=== PATIENT | female | born 1960 | race Caucasian/White ===

== ENCOUNTER 2016-08-17 11:58 | Observation (INO) | payer OTHER ==
[2016-08-17] VITALS (7 sets, daily range): BP systolic 116–133; BP diastolic 60–71; PULSE 68–78; RESP 20–22; TEMP 97.6–98.4; O2SAT 92–98
[~2016-08-17] VITALS: Ht 162.6 cm; Wt 92.0 kg
[~2016-08-17 11:58] MED LIST: ZITH250T PO
[2016-08-17] MEDS ORDERED: SODIUM CHLORIDE 0.9% FLUSH 5 ML FLUSH IVF PRN ×2 (12:15→15:45)
--- NOTE | 2016-08-17 12:32 | RADRPT ---
EXAM DATE/TIME: 08/17/2016 12:08 [facility] COMPARISON: No previous studies available for comparison. INDICATIONS : Midsternal chest pains with radiating into right side and into back. MEDICAL HISTORY : None. SURGICAL HISTORY : None. ENCOUNTER: Initial ACUITY: 1 day PAIN SCORE: 9/10 LOCATION: Right chest FINDINGS: A single view of the chest demonstrates the lungs to be symmetrically aerated without evidence of mas s, infiltrate or effusion. The cardiomediastinal contours are unremarkable. Osseous structures are intact. CONCLUSION: No acute disease. Familia Rhodes MD on August 17, 2016 at 12:30 Board Certified Radiologist. This report was verified electronically.
[2016-08-17 12:35] LABS: AUTOMATED NEUTROPHIL # 3.6 TH/MM3 (1.8-7.7); BASOPHIL % 0.4 % (0.0-2.0); EOSINOPHIL # 0.1 TH/MM3 (0-0.4); EOSINOPHIL % 1.5 % (0.0-4.0); HEMATOCRIT 40.3 % (35.0-46.0); HEMO FLAGS DIFF FINAL; LYMPH % 40.2 % (9.0-44.0); LYMPHOCYTE # 2.9 TH/MM3 (1.0-4.8); MEAN CELL VOLUME 85.9 FL (80.0-100.0); MEAN CORPUSCULAR HEMOGLOBIN 28.7 PG (27.0-34.0); MEAN CORPUSCULAR HGB CONC 33.4 % (32.0-36.0); MONO % 8.6 % (0.0-8.0); NEUT % 49.3 % (16.0-70.0); PLATELET COUNT 250 TH/MM3 (150-450); RED BLOOD COUNT 4.69 MIL/MM3 (4.00-5.30); RED CELL DISTRIBUTION WIDTH 13.4 % (11.6-17.2); WHITE BLOOD COUNT 7.2 TH/MM3 (4.0-11.0)
[2016-08-17 12:46] LABS: INTERNATIONAL NORMALIZED RATIO 1.1 RATIO; PROTHROMBIN TIME - PATIENT 11.7 SEC (9.8-11.6)
--- NOTE | 2016-08-17 13:08 | PD ---
HPI Chief Complaint: Chest Pain Time Seen by Provider: 13:04 Travel History International Travel<30 days: No Contact w/Intl Traveler<30days: No Traveled to known affect area: No History of Present Illness HPI 55-year-old female that presents to the ED for evaluation of chest pain. Patient came here by him was for evaluation of this. He denies any history of heart disease in herself but the stomach she has a family history of heart disease some people older than her. She is an avid smoker. Per patient the pain has been ongoing for the past 3 days. Per patient starts in the chest and radiates to the back as well as to the left shoulder. Per patient she gets dizzy and lightheaded and feel short of breath. Per patient for the past 3 days has been ongoing but today got worse. She denies any recent travel. Denies taking any medications of any kind. She was given nitroglycerin in ambulance with some relief. She denies any abdominal pain. Nausea or vomiting. No leg pain or arm pain at this time. She states that she feels like the room spinning when asked what she means by dizzy. She has no allergies to medication. No back pain. No fevers chills or sweats. No cough or runny nose. Per patient the pain gets to be 7 out of 10. She was given aspirin in route. [facility] Past Medical History Respiratory: Yes (HX PNEUMONIA ) Tetanus Vaccination: > 5 Years Influenza Vaccination: Yes ?: Not Past Surgical History Section: Yes Cholecystectomy: Yes Hysterectomy: Yes Other Surgery: Yes (HERNIA REPAIR) Social History Alcohol Use: Yes (OCCASIONALLY ) Tobacco Use: Yes (1 PPD) Substance Use: No Allergies-Medications (Allergen,Severity, Reaction): Coded Allergies: No Known Allergies (Verified , 08/17/13) Reported Meds & Prescriptions Reported Meds & Active Scripts Active Zithromax Z-Morris (Azithromycin) 250 Mg Tab 250 Mg PO DIRECTED 5 Days 500 MG (2 TABLETS) PO ON DAY 1, THEN 250 MG (1 TABLET) PO ON DAYS 2 TO 5. Review of Systems Except as stated in HPI: all other systems reviewed are Neg Physical Exam Narrative GENERAL: SKIN: Warm and dry. HEAD: Atraumatic. Normocephalic. EYES: Pupils equal and round. No scleral icterus. No injection or drainage. ENT: No nasal bleeding or discharge. Mucous membranes pink and moist. Tongue is midline. No uvula deviation. NECK: Trachea midline. No JVD. CARDIOVASCULAR: Regular rate and rhythm. No murmurs, S3, S4. Chest pain is not reproducible with touch. RESPIRATORY: No accessory muscle use. Clear to auscultation. Breath sounds equal bilaterally. GASTROINTESTINAL: Abdomen soft, non-tender, nondistended. Hepatic and splenic margins not palpable. MUSCULOSKELETAL: Extremities without clubbing, cyanosis, or edema. No obvious deformities. Full range of motion of the upper and lower extremities bilaterally. 2+ pulses bilaterally. NEUROLOGICAL: Awake and alert. No obvious cranial nerve deficits. Motor grossly within normal limits. Five out of 5 muscle strength in the arms and legs. Normal speech. PSYCHIATRIC: Appropriate mood and affect; insight and judgment normal. Data Data Last Documented VS Vital Signs Date Time Temp Pulse Resp B/P Pulse Ox O2 Delivery O2 Flow Rate FiO2 08/17/16 13:37 18 08/17/16 13:17 70 125/69 95 Room Air 08/17/16 12:11 2 08/17/16 12:06 92 08/17/16 12:06 98.4 Orders Electrocardiogram (08/17/16 12:05) Basic Metabolic Panel (Bmp) (08/17/16 12:05) Ckmb (Isoenzyme) Profile (08/17/16 12:05) Complete Blood Count With Diff (08/17/16 12:05) Magnesium (Mg) (08/17/16 12:05) Prothrombin Time / Inr (Pt) (08/17/16 12:05) Act Partial Throm Time (Ptt) (08/17/16 12:05) Troponin I (08/17/16 12:05) Chest, Single Ap (08/17/16 12:05) Ecg Monitoring (08/17/16 12:05) Bilateral Bp Monitoring (08/17/16 12:05) Iv Access Insert/Monitor (08/17/16 12:05) Oximetry (08/17/16 12:05) Oxygen Administration (08/17/16 12:05) Sodium Chloride 0.9% Flush (Ns Flush) (08/17/16 12:15) Morphine Inj (Morphine Inj) (08/17/16 13:15) Ondansetron Inj (Zofran Inj) (08/17/16 13:15) CKMB (08/17/16 12:10) CKMB% (08/17/16 12:10) Admit Order (Ed Use Only) (08/17/16 13:49) Labs Laboratory Tests Test 08/17/16 12:10 White Blood Count 7.2 TH/MM3 Red Blood Count 4.69 MIL/MM3 Hemoglobin 13.5 GM/DL Hematocrit 40.3 % Mean Corpuscular Volume 85.9 FL Mean Corpuscular Hemoglobin 28.7 PG Mean Corpuscular Hemoglobin 33.4 % Concent Red Cell Distribution Width 13.4 % Platelet Count 250 TH/MM3 Mean Platelet Volume 9.2 FL Neutrophils (%) (Auto) 49.3 % Lymphocytes (%) (Auto) 40.2 % Monocytes (%) (Auto) 8.6 % Eosinophils (%) (Auto) 1.5 % Basophils (%) (Auto) 0.4 % Neutrophils # (Auto) 3.6 TH/MM3 Lymphocytes # (Auto) 2.9 TH/MM3 Monocytes # (Auto) 0.6 TH/MM3 Eosinophils # (Auto) 0.1 TH/MM3 Basophils # (Auto) 0.0 TH/MM3 CBC Comment DIFF FINAL Differential Comment Prothrombin Time 11.7 SEC Prothromb Time International 1.1 RATIO Ratio Activated Partial 28.0 SEC Thromboplast Time Sodium Level 137 MEQ/L Potassium Level 5.1 MEQ/L Chloride Level 107 MEQ/L Carbon Dioxide Level 25.4 MEQ/L Anion Gap 5 MEQ/L Blood Urea Nitrogen 9 MG/DL Creatinine 0.64 MG/DL Estimat Glomerular Filtration 96 ML/MIN Rate Random Glucose 82 MG/DL Calcium Level 8.2 MG/DL Magnesium Level 2.3 MG/DL Total Creatine Kinase 175 U/L Creatine Kinase MB LESS THAN 0.5 NG/ML Troponin I LESS THAN 0.02 NG/ML MDM Medical Decision Making Medical Screen Exam Complete: Yes Emergency Medical Condition: Yes Medical Record Reviewed: Yes Interpretation(s) CBC & BMP Diagram 08/17/16 12:10 EKG shows sinus rhythm with no sign of acute ischemia or arrhythmia read by me and attending. Last Impressions Chest X-Ray 08/17/16 1205 Signed Impressions: Service Date/Time: Wednesday, August 17, 2016 12:08 - CONCLUSION: No acute disease. Familia Rhodes MD BMP and troponin negative CKMB negative Differential Diagnosis Chest pain versus a typical chest pain versus ACS versus NSTEMI Narrative Course 55-year-old female that presents to the ED for evaluation of chest pain. Patient was properly examined and was found to have signs and symptoms consistent with chest pain. Possible cardiac. Recommendation is times for labs and imaging. Patient is agreeable with plan. Labs and imaging showed no sign of acute disease. Initial EKG showed no ST elevation and initial troponin was negative. Because of patient's symptoms and do recommend admission for chest pain center for cardiac rule out. Patient is agreeable with this plan. Patient was admitted to the chest pain center. Procedures EKG Prior to Arrival: Yes Diagnosis Primary Impression: Chest pain in adult Admitting Information Admitting Physician Requests: Observation Cody Ellis Aug 17, 2016 13:07
[2016-08-17 13:12] LABS: ANION GAP 5 MEQ/L (5-15); BICARBONATE 25.4 MEQ/L (21.0-32.0); BLOOD UREA NITROGEN 9 MG/DL (7-18); CHLORIDE 107 MEQ/L (98-107); GLOMERULAR FILTRATION RATE 96 ML/MIN (>89); MAGNESIUM 2.3 MG/DL (1.5-2.5); SODIUM (NA) 137 MEQ/L (136-145)
[2016-08-17 13:13] LABS: CREATINE KINASE 175 U/L (26-192); POTASSIUM 5.1 MEQ/L (3.5-5.1)
[2016-08-17] MEDS ORDERED: MORPHINE SULFATE 4 MG/ML INJ IV PUSH ONE (13:15)
[2016-08-17] MEDS ORDERED: ONDANSETRON HCL 4 MG/2 ML VIAL IV PUSH ONE (13:15)
[2016-08-17 13:25] LABS: CKMB LESS THAN 0.5 NG/ML (0.5-3.6)
--- NOTE | 2016-08-17 14:16 | PD ---
Physical Exam Date Seen by Provider: Aug 17, 2016 Time Seen by Provider: 12:15 Narrative I, Dr. Jacobson, have reviewed the advance practice practitioner's documentation and am in agreement, met with the patient face to face, made the diagnosis, and the medical decision making was done by me. *My assessment and Findings: Patient seen and evaluated with PA, please see PA note for further details. GENERAL: Well-nourished, well-developed middle age female patient in no acute distress. SKIN: Warm and dry. HEAD: Normocephalic. EYES: No scleral icterus. No injection or drainage. NECK: Supple, trachea midline. CARDIOVASCULAR: Regular rate and rhythm without murmurs, gallops, or rubs. RESPIRATORY: Breath sounds equal bilaterally. No accessory muscle use. GASTROINTESTINAL: Abdomen soft, non-tender, nondistended. MUSCULOSKELETAL: No cyanosis, or edema. BACK: Nontender without obvious deformity. No CVA tenderness. EKG shows NSR, no ST elevation or depression, and no arrhythmias. No significant T-wave inversions. Laboratory Tests Test 08/17/16 12:10 Monocytes (%) (Auto) 8.6 % (0.0-8.0) Prothrombin Time 11.7 SEC (9.8-11.6) Calcium Level 8.2 MG/DL (8.5-10.1) Creatine Kinase MB LESS THAN 0.5 NG/ML (0.5-3.6) Troponin I LESS THAN 0.02 NG/ML (0.02-0.05) Last 24 hours Impressions Chest X-Ray 08/17/16 1205 Signed Impressions: Service Date/Time: Wednesday, August 17, 2016 12:08 - CONCLUSION: No acute disease. Familia Rhodes MD Chest x-ray, EKG, and cardiac enzymes negative. At this point, my plan would be to admit the patient for further evaluation and chest pain center. Data Data Last Documented VS Vital Signs Date Time Temp Pulse Resp B/P Pulse Ox O2 Delivery O2 Flow Rate FiO2 08/17/16 13:37 18 08/17/16 13:17 70 125/69 95 Room Air 08/17/16 12:11 2 08/17/16 12:06 92 08/17/16 12:06 98.4 Orders Electrocardiogram (08/17/16 12:05) Basic Metabolic Panel (Bmp) (1/27/17 12:05) Ckmb (Isoenzyme) Profile (08/17/16 12:05) Complete Blood Count With Diff (08/17/16 12:05) Magnesium (Mg) (08/17/16 12:05) Prothrombin Time / Inr (Pt) (08/17/16 12:05) Act Partial Throm Time (Ptt) (08/17/16 12:05) Troponin I (08/17/16 12:05) Chest, Single Ap (08/17/16 12:05) Ecg Monitoring (08/17/16 12:05) Bilateral Bp Monitoring (08/17/16 12:05) Iv Access Insert/Monitor (08/17/16 12:05) Oximetry (08/17/16 12:05) Oxygen Administration (08/17/16 12:05) Sodium Chloride 0.9% Flush (Ns Flush) (08/17/16 12:15) Morphine Inj (Morphine Inj) (08/17/16 13:15) Ondansetron Inj (Zofran Inj) (08/17/16 13:15) CKMB (08/17/16 12:10) CKMB% (08/17/16 12:10) Admit Order (Ed Use Only) (08/17/16 13:49) Labs Laboratory Tests Test 08/17/16 12:10 White Blood Count 7.2 TH/MM3 Red Blood Count 4.69 MIL/MM3 Hemoglobin 13.5 GM/DL Hematocrit 40.3 % Mean Corpuscular Volume 85.9 FL Mean Corpuscular Hemoglobin 28.7 PG Mean Corpuscular Hemoglobin 33.4 % Concent Red Cell Distribution Width 13.4 % Platelet Count 250 TH/MM3 Mean Platelet Volume 9.2 FL Neutrophils (%) (Auto) 49.3 % Lymphocytes (%) (Auto) 40.2 % Monocytes (%) (Auto) 8.6 % Eosinophils (%) (Auto) 1.5 % Basophils (%) (Auto) 0.4 % Neutrophils # (Auto) 3.6 TH/MM3 Lymphocytes # (Auto) 2.9 TH/MM3 Monocytes # (Auto) 0.6 TH/MM3 Eosinophils # (Auto) 0.1 TH/MM3 Basophils # (Auto) 0.0 TH/MM3 CBC Comment DIFF FINAL Differential Comment Prothrombin Time 11.7 SEC Prothromb Time International 1.1 RATIO Ratio Activated Partial 28.0 SEC Thromboplast Time Sodium Level 137 MEQ/L Potassium Level 5.1 MEQ/L Chloride Level 107 MEQ/L Carbon Dioxide Level 25.4 MEQ/L Anion Gap 5 MEQ/L Blood Urea Nitrogen 9 MG/DL Creatinine 0.64 MG/DL Estimat Glomerular Filtration 96 ML/MIN Rate Random Glucose 82 MG/DL Calcium Level 8.2 MG/DL Magnesium Level 2.3 MG/DL Total Creatine Kinase 175 U/L Creatine Kinase MB LESS THAN 0.5 NG/ML Troponin I LESS THAN 0.02 NG/ML [facility] Medical Record Reviewed: Yes Supervised Visit with CHETNA: Yes Diagnosis Primary Impression: Chest pain in adult Admitting Information Admitting Physician Requests: it Dylan Jacobson MD Aug 17, 2016 14:15
[2016-08-17] MEDS ORDERED: ONDANSETRON HCL 4 MG/2 ML VIAL IV PRN (16:00)
[2016-08-17] MEDS ORDERED: RESP: ALBUTEROL 2.5 MG/IPRATROPIUM 0.5 MG NEB (PRN) INH (16:00)
[2016-08-17] MEDS ORDERED: KETOROLAC TROMETHAMINE 30 MG/ML (IVP) VIAL IVP ONE (16:00)
[2016-08-17] MEDS ORDERED: ALPRAZolam 0.25 MG TAB PO PRN (16:00)
[2016-08-17] MEDS ORDERED: ACETAMINOPHEN/HYDROcodone 325 MG/7.5 MG TAB PO PRN (16:00)
[2016-08-17] MEDS ORDERED: NITROGLYCERIN 2% OINT 1 GM PACKET TOPICAL ONE (16:00)
[2016-08-17 20:34] LABS: CREATINE KINASE 54 U/L (26-192)
[2016-08-17] MEDS: ACETAMINOPHEN 500 MG CPLT PO PRN (21:22)
[2016-08-17] MEDS: SODIUM CHLORIDE 0.9% FLUSH 5 ML FLUSH IVF SCH (21:22)
[2016-08-18] VITALS (8 sets, daily range): BP systolic 100–120; BP diastolic 55–75; PULSE 55–72; RESP 18–20; TEMP 97.1–98.6; O2SAT 93–98
[2016-08-18] MEDS: SODIUM CHLORIDE 0.9% FLUSH 5 ML FLUSH IVF SCH (08:03)
[2016-08-18] MEDS ORDERED: ASPIRIN 325 MG TAB PO SCH (09:00)
[2016-08-18] MEDS ORDERED: PANTOPRAZOLE SOD 40 MG DELAYED RELEASE TAB PO SCH (09:00)
[2016-08-18] MEDS ORDERED: REGADENOSON INJ 0.4 MG/5 ML SYR ONE (09:17)
--- NOTE | 2016-08-18 12:19 | EKG ---
Date Performed: 08/17/2016 Time Performed: 12:05:32 PTAGE: 55 years EKG: Sinus rhythm NONSPECIFIC T-WAVE ABNORMALITY BORDERLINE ECG INTERPRETATION BASED ON A DEFAULT AGE OF 40 YEARS PREVIOUS TRACING : 05/23/1998 00.56 DOCTOR: Jared Garibay Interpretating Date/Time 08/18/2016 12:17:10
[2016-08-18] MEDS: ACETAMINOPHEN 500 MG CPLT PO PRN (12:29)
--- NOTE | 2016-08-18 12:32 | EKG ---
Date Performed: 08/17/2016 Time Performed: 17:35:45 PTAGE: 55 years EKG: Sinus rhythm LOW QRS VOLTAGE IN PRECORDIAL LEADS NONSPECIFIC T-WAVE ABNORMALITY BORDERLINE ECG PREVIOUS TRACING : 08/17/2016 12.05 DOCTOR: Jared Garibay Interpretating Date/Time 08/18/2016 12:30:19
--- NOTE | 2016-08-18 12:36 | EKG ---
Date Performed: 08/17/2016 Time Performed: 19:33:36 PTAGE: 55 years EKG: Sinus rhythm LOW QRS VOLTAGE IN PRECORDIAL LEADS NONSPECIFIC T-WAVE ABNORMALITY BORDERLINE ECG PREVIOUS TRACING : 08/17/2016 17.35 DOCTOR: Jared Garibay Interpretating Date/Time 08/18/2016 12:34:48
--- NOTE | 2016-08-18 12:37 | RADRPT ---
EXAM DATE/TIME: 08/18/2016 08:49 [facility] COMPARISON: No previous studies available for comparison. INDICATIONS : Chest pain radiating to back and left shoulder presents with dizziness, lightheadedness and shortness of breath. Angina. DOSE: 27.3 mCi Tc99m Myoview at stress. 8.6 mCi Tc99m Myoview at rest. 0.4 mg Lexiscan STRESS SYMPTOMS: Dizzy, shortness of breath and headache. EJECTION FRACTION: > 70% MEDICAL HISTORY : None SURGICAL HISTORY : Cholecystectomy. section. Hysterectomy. Hernia repair. ENCOUNTER: Initial ACUITY: 3 days PAIN SCALE: 7/10 LOCATION: chest TECHNIQUE: The patient underwent pharmacologic stress with infusion of prescribed dose. Continuous ECG tracing was monitored during stress. Gated SPECT imaging was performed after stress and conventional SPECT i maging was performed at rest. The examination was performed on a SPECT/CT scanner, both attenuation and non-corrected datasets were reviewed. FINDINGS: DISTRIBUTION: The maximum perfused segment at stress is in the lateral wall. PERFUSION STUDY: The pattern of perfusion at stress is within normal limits. GATED STUDY: There is intact wall motion and thickening without hypokinetic or dyskinetic segments. CONCLUSION: Unremarkable myocardial perfusion study. RISK CATEGORY: Low Jamir Gil MD on August 18, 2016 at 12:35 Board Certified Radiologist. This report was verified electronically.
--- NOTE | 2016-08-18 12:54 | TR ---
Date Performed: 08/18/2016 Time Performed: 09:26:15 DOCTOR: Jared Garibay DRUG LIST: CLINICAL HISTORY: CHEST PAIN REASON FOR TEST: CHEST PAIN REASON FOR ENDING: OBSERVATION: CONCLUSION: Lexiscan stress test was performed under standard four minute protocol. Radionuclide was injected one minute prior to ending the test. Developed dizziness and shortness of breath, becam e mildly hypotensive. No electrocardiographic abnormalities were present to suggest ischemia. Recover y was quick and uneventful with resolution of symptoms, blood pressure returned to normal. Nuclear im aging and interpretation are pending. COMMENTS:
--- NOTE | 2016-08-18 13:14 | HHI.DCPOC ---
Discharge Care Plan Diagnosis: (1) Atypical chest pain (2) Musculoskeletal chest pain (3) Tobacco abuse Goals to Promote Your Health * To prevent worsening of your condition and complications * To maintain your health at the optimal level Directions to Meet Your Goals Take your medications as prescribed Follow your dietary instruction Follow activity as directed Keep your appointments as scheduled Take your immunizations and boosters as scheduled If your symptoms worsen call your PCP, if no PCP go to Urgent Care Center or Emergency Room Smoking is Dangerous to Your Health. Avoid second hand smoke Call the 24-hour hour crisis hotline for domestic abuse at [facility] Aug 18, 2016 13:13
--- NOTE | 2016-08-19 12:44 | MH ---
cc: MODESTA DIAS MD DATE OF ADMISSION: 08/17/2016 DATE OF 56 CHIEF COMPLAINT Chest pain. HISTORY OF PRESENT ILLNESS A 55 year old female who presents to the ED via [facility] with a complaint of chest discomfort. She states she was at work earlier this morning when she had a sudden onset if discomfort in her back. It was an intense discomfort. Later it radiated anteriorly in her chest. She describes it as a heaviness. It is still there. She was a little short of breath. She felt a little dizzy. There was no diaphoresis, was feeling a little nauseous. She works with [employer] and had told somebody about her discomfort and they gave her some nitroglycerin and aspirin which did not help her symptoms. She states she was given some IV pain medicine in the ER which helped a little bit but the discomfort is still there. The discomfort is currently about a 5/10. She denies history of heart disease. She states she has never had any cardiac evaluation. Her primary care physician is Dr. Kacie Williamson. She also has had a cough, had been nonproductive, for the past week. No fevers or chills. No recent travel. PAST MEDICAL HISTORY Tobacco abuse. Denies hypertension, hyperlipidemia, diabetes and CAD. FAMILY HISTORY She denies family history of CAD. SOCIAL HISTORY The patient smokes one-pack of cigarettes daily for 30 years. She has occasional alcohol. Denies illicit drugs. PAST SURGICAL HISTORY 1. , 2. Cholecystectomy ALLERGIES No known drug allergies. MEDICATIONS Denies. REVIEW OF SYSTEMS GENERAL: Denies fevers or chills. Denies recent illnesses. HEENT: Denies headache, earache, sore throat, difficulty swallowing. CARDIOVASCULAR: Describes the discomfort as mentioned above. Denies diaphoresis. Denies sensation of heart beating rapidly or irregularly. Denies syncope. RESPIRATORY: She was a little short of breath. She has had a dry cough. Denies inspirational chest discomfort. Denies wheezing or hemoptysis. GI: She was a little nauseous. Denies emesis. Denies abdominal pain. Denies diarrhea, constipation or blood in stool. MUSCULOSKELETAL: Denies joint pain or edema. She does complain of an upper back discomfort and it is still there. It is worse when she does any movements. Denies calf pain or swelling. NEUROVASCULAR: Denies headache. She was having a little dizziness earlier. That has resolved. Denies numbness, tingling or weakness in extremities. ENDOCRINE: Denies polyuria or polydipsia. HEMATOLOGIC: Denies bruising. SKIN: Denies rash or itching. PHYSICAL EXAMINATION VITAL SIGNS: In the emergency department initially included a blood pressure 133/69, heart rate was 78, respirations 22, pulse oximetry 96% on room air and she was afebrile. Most recent vital signs include blood pressure 126/71, heart rate was 73, respirations 20, pulse oximetry 98 in room air. GENERAL: The patient seen in the examination room in no apparent stress. She is very pleasant. She speaks in clear and complete sentences. HEENT: Head is atraumatic, normocephalic. NECK: Neck is supple without lymphadenopathy and trachea is midline. No JVD or carotid bruits. CARDIOVASCULAR: Regular rate and rhythm without murmur, gallop or rub. RESPIRATORY: Clear to auscultation bilaterally. No wheezing, rales or rhonchi. There is a rather easily reproducible discomfort across her anterior chest wall. It is also worse with twisting of the torso and sitting upright. This is worse than the discomfort she has been having. GI: Abdomen is nontender, nondistended. Bowel sounds are normal. No guarding or rebound. No obvious pulsatile mass or bruit. No CVA tenderness. Strong femoral pulses bilaterally. MUSCULOSKELETAL: Patient moving upper and lower extremities freely. No joint tenderness or edema. No calf tenderness or edema, no Homans' sign. Strong pulses in upper and lower extremities. NEUROVASCULAR: The patient is alert and oriented. Cranial II-XII are grossly intact. No focal deficits and speech is clear. SKIN: No rashes. Turgor is normal. LABORATORY DATA CBC is unremarkable. Coagulation studies unremarkable. A basic metabolic panel is unremarkable. First set of cardiac enzymes is normal. IMAGING STUDIES Single view chest x-ray read by radiology as no acute disease. CARDIOLOGY STUDIES EKGs - initial EKG sinus rhythm with nonspecific T-wave changes anteriorly. ASSESSMENT 1. Chest pain: The patient will have cardiac enzymes and EKGs for ruling out purposes. She has been evaluated by Dr. Jeff Dias of cardiology in the chest pain center. If she does rule out overnight, then in the morning she will proceed with a nuclear stress test. If her stress testing were to be nonischemic, she will be discharged home with instruction to follow with local physician. She is given Toradol also for the discomfort she has. 2. Tobacco abuse: The patient has been counseled on importance of smoking cessation. The patient is stable at this time. She is agreeable to this plan. Dictated by WYATT Williamson MD DOROTA Spence/ /3:45 PM /12:32 PM
== END 2016-08-18 15:38 | disposition home or self-care (01) ==
LOC: NEPC 11:58 → NEDA 13:50 → NEPGCP 15:41
PROVIDERS: ADMIT Internal Medicine Cardiovascular Disease; ATTEND Internal Medicine Cardiovascular Disease
DX: R07.89 Other chest pain (principal); R94.31 Abnormal electrocardiogram [ECG] [EKG]; F17.200 Nicotine dependence, unspecified, uncomplicated; Z87.01 Personal history of pneumonia (recurrent)
CPT/HCPCS: 71010; 78452; 80048; 82550; 82552; 83735; 84484; 85025; 85610; 85730; 93005; 93017; 96374; 96375; 99285; A9502; G0378; J1885; J2270; J2405; J2785

== ENCOUNTER 2017-09-20 03:36 | Inpatient (IN) | payer OTHER ==
[2017-09-20] VITALS (8 sets, daily range): BP systolic 120–174; BP diastolic 58–92; PULSE 61–82; RESP 16–20; TEMP 97.8–98.6; O2SAT 93–96
[~2017-09-20] VITALS: Ht 162.6 cm; Wt 95.5 kg
[2017-09-20] MEDS ORDERED: IOHEXOL 350 MG/ML 10 ML VIAL (for RAD DIAG) IVCONTRAST ONE (03:37)
[2017-09-20] MEDS ORDERED: CLINDAMYCIN INJ 900 MG in SODIUM CHLORIDE 0.9% INJ 100 ML IV ONE (04:00)
[2017-09-20] MEDS ORDERED: SODIUM CHLORIDE 0.9% FLUSH 10 ML FLUSH IV FLUSH PRN ×3 (04:00→10:00)
[2017-09-20] MEDS ORDERED: PENI500T PO (04:00)
[2017-09-20] MEDS ORDERED: MORPHINE SULFATE 2 MG/ML INJ IV PUSH ONE (04:00)
[2017-09-20] MEDS ORDERED: TYLETAB34 PO (04:00)
--- NOTE | 2017-09-20 04:02 | PD ---
HPI Chief Complaint: Oral / Dental Pain or Problem Time Seen by Provider: 03:53 Travel History International Travel<30 days: No Contact w/Intl Traveler<30days: No Traveled to known affect area: No History of Present Illness HPI 56-year-old female here for evaluation of dental pain and facial swelling. The patient reports that she began having dental pain 2 days ago. Yesterday she went to her dentist to prescribe penicillin and pain medication. At that time she was having right upper posterior molar pain. When she woke up this morning she noticed significant right facial swelling as well as pain. She is able to swallow and tolerate her secretions. No fevers or chills. She denies history of diabetes. No trauma. PFSH Past Medical History Respiratory: Yes (HX PNEUMONIA ) Tetanus Vaccination: Unknown Influenza Vaccination: Yes Menopausal: Yes : 3 Para: 2 Miscarriage: 1 Past Surgical History Section: Yes Cholecystectomy: Yes Hysterectomy: Yes Other Surgery: Yes (HERNIA REPAIR) Social History Alcohol Use: Yes (RARELY) Tobacco Use: Yes (1 PPD) Substance Use: No Allergies-Medications (Allergen,Severity, Reaction): Coded Allergies: No Known Allergies (Verified , 08/17/13) Reported Meds & Prescriptions Reported Meds & Active Scripts Active Reported Penicillin V Potassium 500 Mg Tab 500 Mg PO Q6H Tylenol-Codeine #3 (Acetaminophen-Codeine) 300-30 mg Tab 1 Tab PO Q4H PRN Review of Systems Except as stated in HPI: all other systems reviewed are Neg Physical Exam Narrative GENERAL: Well-developed, well-nourished, awake, alert, no apparent distress. SKIN: Focused skin assessment warm/dry. HEAD: Normocephalic. Significant right cheek swelling and induration. EYES: Pupils equal and round. No scleral icterus. No injection or drainage. ENT: Mucous membranes pink and moist. Poor dentition. Significant right cheek swelling and induration. There is some swelling under the right mandibular angle. No sublingual swelling. No drooling or stridor. 2 finger trismus. Normal phonation. Normal pharynx. NECK: Trachea midline. No JVD. No nuchal rigidity. CARDIOVASCULAR: Regular rate and rhythm. No murmur appreciated. RESPIRATORY: No accessory muscle use. Clear to auscultation. Breath sounds equal bilaterally. GASTROINTESTINAL: Abdomen soft, non-tender, nondistended. MUSCULOSKELETAL: No obvious deformities. No clubbing. No cyanosis. No edema. NEUROLOGICAL: Awake and alert. No obvious cranial nerve deficits. Motor grossly within normal limits. Normal speech. PSYCHIATRIC: Appropriate mood and affect; insight and judgment normal. Data Data Last Documented VS Vital Signs Date Time Temp Pulse Resp B/P (MAP) Pulse Ox O2 Delivery O2 Flow Rate FiO2 09/20/17 07:01 70 18 170/92 (118) 93 Room Air 09/20/17 03:43 97.8 Orders Orders Complete Blood Count With Diff (09/20/17 03:58) Comprehensive Metabolic Panel (09/20/17 03:58) Prothrombin Time / Inr (Pt) (09/20/17 03:58) Act Partial Throm Time (Ptt) (09/20/17 03:58) Iv Access Insert/Monitor (09/20/17 03:58) Ecg Monitoring (09/20/17 03:58) Oximetry (09/20/17 03:58) Sodium Chloride 0.9% Flush (Ns Flush) (09/20/17 04:00) Morphine Inj (Morphine Inj) (09/20/17 04:00) Ct Facial Bones W Iv Contrast (09/20/17 ) Clindamycin 900 Mg/Ns Premix (Cleocin 90 (09/20/17 04:30) Iohexol 350 Inj (Omnipaque 350 Inj) (09/20/17 03:37) Dexamethasone Inj (Decadron Inj) (09/20/17 06:45) Labs Laboratory Tests Test 09/20/17 04:00 White Blood Count 8.2 TH/MM3 Red Blood Count 4.71 MIL/MM3 Hemoglobin 14.0 GM/DL Hematocrit 41.2 % Mean Corpuscular Volume 87.5 FL Mean Corpuscular Hemoglobin 29.7 PG Mean Corpuscular Hemoglobin Concent 34.0 % Red Cell Distribution Width 12.9 % Platelet Count 224 TH/MM3 Mean Platelet Volume 8.0 FL Neutrophils (%) (Auto) 68.3 % Lymphocytes (%) (Auto) 21.8 % Monocytes (%) (Auto) 8.9 % Eosinophils (%) (Auto) 0.8 % Basophils (%) (Auto) 0.2 % Neutrophils # (Auto) 5.6 TH/MM3 Lymphocytes # (Auto) 1.8 TH/MM3 Monocytes # (Auto) 0.7 TH/MM3 Eosinophils # (Auto) 0.1 TH/MM3 Basophils # (Auto) 0.0 TH/MM3 CBC Comment DIFF FINAL Differential Comment Prothrombin Time 10.5 SEC Prothromb Time International Ratio 1.0 RATIO Activated Partial Thromboplast Time 29.8 SEC Blood Urea Nitrogen 7 MG/DL Creatinine 0.59 MG/DL Random Glucose 120 MG/DL Total Protein 6.4 GM/DL Albumin 3.2 GM/DL Calcium Level 8.4 MG/DL Alkaline Phosphatase 157 U/L Aspartate Amino Transf (AST/SGOT) 187 U/L Alanine Aminotransferase (ALT/SGPT) 135 U/L Total Bilirubin 1.0 MG/DL Sodium Level 142 MEQ/L Potassium Level 3.6 MEQ/L Chloride Level 108 MEQ/L Carbon Dioxide Level 26.2 MEQ/L Anion Gap 8 MEQ/L Estimat Glomerular Filtration Rate 105 ML/MIN [facility] Medical Decision Making Medical Screen Exam Complete: Yes Emergency Medical Condition: Yes Differential Diagnosis Dental abscess, Jake angina less likely, submandibular abscess, retropharyngeal abscess Narrative Course Initial vital signs show heart rate 82, blood pressure 152/84, pulse ox 96% on room air, oral temp of 97.8F. CBC: WBC 8.2, hemoglobin 14, hematocrit 41.2, platelets 224. CMP is remarkable for AST 187, ALT 135, otherwise unremarkable. CT facial bones with IV contrast: CONCLUSION: 1. Prominent area of soft tissue thickening adjacent to the right body of the mandible measuring up to 2.7 cm in thickness. There is a mild pattern of enhancement without discrete focal fluid collection. No extension deep to the mandible. 2. Loss of delineation of the posterior maxillary bone adjacent to the last molar suggesting possible periodontal abscess. Patient was given a dose of IV clindamycin here. She was also given a dose of IV morphine. On reassessment the patient's right cheek seems even more swollen than when she first arrived in the emergency department. There is no airway compromise. No drooling or stridor. Patient is complaining of intense pain. She will be given a dose of Decadron and will be admitted for further treatment and evaluation. Case discussed with hospitalist Dr. Silveira who will admit the patient to his service. Diagnosis Primary Impression: Facial cellulitis Additional Impression: Facial swelling Raffaele Muñoz MD Sep 20, 2017 04:02
[2017-09-20 04:27] LABS: AUTOMATED NEUTROPHIL # 5.6 TH/MM3 (1.8-7.7); BASOPHIL % 0.2 % (0.0-2.0); EOSINOPHIL # 0.1 TH/MM3 (0-0.4); EOSINOPHIL % 0.8 % (0.0-4.0); HEMATOCRIT 41.2 % (35.0-46.0); LYMPH % 21.8 % (9.0-44.0); LYMPHOCYTE # 1.8 TH/MM3 (1.0-4.8); MEAN CELL VOLUME 87.5 FL (80.0-100.0); MEAN CORPUSCULAR HEMOGLOBIN 29.7 PG (27.0-34.0); MONO % 8.9 % (0.0-8.0); MONOCYTE # 0.7 TH/MM3 (0-0.9); NEUT % 68.3 % (16.0-70.0); PLATELET COUNT 224 TH/MM3 (150-450); RED BLOOD COUNT 4.71 MIL/MM3 (4.00-5.30); RED CELL DISTRIBUTION WIDTH 12.9 % (11.6-17.2); WHITE BLOOD COUNT 8.2 TH/MM3 (4.0-11.0)
[2017-09-20] MEDS ORDERED: CLINDAMYCIN 900 MG/NS PREMIX 50 ML IV ONE (04:30)
[2017-09-20 04:39] LABS: PROTHROMBIN TIME - PATIENT 10.5 SEC (9.8-11.6)
[2017-09-20 04:58] LABS: ALBUMIN 3.2 GM/DL (3.4-5.0); ALT (GPT) 135 U/L (10-53); AST (GOT) 187 U/L (15-37); BICARBONATE 26.2 MEQ/L (21.0-32.0); BLOOD UREA NITROGEN 7 MG/DL (7-18); CALCIUM 8.4 MG/DL (8.5-10.1); CHLORIDE 108 MEQ/L (98-107); CREATININE 0.59 MG/DL (0.50-1.00); GLOMERULAR FILTRATION RATE 105 ML/MIN (>89); GLUCOSE,RANDOM 120 MG/DL (74-106); SODIUM (NA) 142 MEQ/L (136-145)
[2017-09-20 05:01] LABS: ALKALINE PHOSPHATASE 157 U/L (45-117)
[2017-09-20 05:31] LABS: TOTAL PROTEIN 6.4 GM/DL (6.4-8.2)
--- NOTE | 2017-09-20 06:30 | RADRPT ---
EXAM DATE/TIME: 09/20/2017 05:42 [place] COMPARISON: No previous studies available for comparison. INDICATIONS : Right sided facial swelling. Evaluate tooth abscess. IV CONTRAST: 71 cc Omnipaque 350 (iohexol) IV RADIATION DOSE: 18.94 CTDIvol (mGy) MEDICAL HISTORY : None SURGICAL HISTORY : None. ENCOUNTER: Initial ACUITY: 1 day PAIN SCALE: 8/10 LOCATION: Right facial TECHNIQUE: Volumetric scanning of the facial bones was performed. Using automated exposure control and adjustme nt of the mA and/or kV according to patient size, radiation dose was kept as low as reasonably achiev able to obtain optimal diagnostic quality images. DICOM format image data is available electronicall y for review and comparison. FINDINGS: There is prominent thickening of the soft tissues in the right perimandibular region extending from t he anterior genu through the posterior body; there is indistinctness of the masseter muscle and the p erimandibular soft tissues thickening measures up to 2.7 cm. There is also induration of the subcuta neous fat in facial to the soft tissue swelling. No discrete fluid collections seen. No focal destr uction of the mandible or periosteal reaction. Some streak artifact from dental fillings. The parotid and submandibular glands are normal and symmetric in appearance. No evidence of right ne ck adenopathy. A left retromandibular lymph node measures 8 mm. CONCLUSION: 1. Prominent area of soft tissue thickening adjacent to the right body of the mandible measuring up t o 2.7 cm in thickness. There is a mild pattern of enhancement without discrete focal fluid collectio n. No extension deep to the mandible. 2. Loss of delineation of the posterior maxillary bone adjacent to the last molar suggesting possible periodontal abscess. Nirmal Linton MD on September 20, 2017 at 6:22 Board Certified Radiologist. This report was verified electronically.
[2017-09-20] MEDS ORDERED: DEXAMETHASONE SOD PHOS 4 MG/ML VIAL IV PUSH ONE (06:45)
[2017-09-20] MEDS ORDERED: ONDANSETRON HCL 4 MG/2 ML VIAL IVP PRN ×2 (07:00→10:00)
[2017-09-20] MEDS ORDERED: MAGNESIUM HYDROXIDE SUSP 30 ML CUP PO PRN ×2 (07:00→10:00)
[2017-09-20] MEDS ORDERED: ACETAMINOPHEN 325 MG TAB PO PRN ×3 (07:00→10:00)
[2017-09-20] MEDS ORDERED: BISACODYL 10 MG SUPP RECTAL PRN ×2 (07:00→10:00)
[2017-09-20] MEDS ORDERED: LACTULOSE SYRUP 20 GM/30 ML CUP PO PRN ×2 (07:00→10:00)
[2017-09-20] MEDS ORDERED: NALOXONE HCL 0.4 MG/ML AMP IV PUSH PRN ×2 (07:00→10:00)
[2017-09-20] MEDS ORDERED: SENNOSIDES 8.6 MG TAB PO PRN ×2 (07:00→10:00)
[2017-09-20] MEDS ORDERED: ACETAMINOPHEN/HYDROcodone 325 MG/5 MG TAB PO PRN (07:15)
[2017-09-20] MEDS ORDERED: KETOROLAC TROMETHAMINE 10 MG TAB PO PRN (07:30)
[2017-09-20] MEDS ORDERED: SODIUM CHLORIDE 0.9% FLUSH 10 ML FLUSH IV FLUSH SCH (09:00)
--- NOTE | 2017-09-20 09:53 | HHI.HP ---
[facility] Kacie Williamson MD Admission Diagnosis facial cellulitis, facial swelling Diagnoses: (1) Tobacco abuse Diagnosis: Secondary (2) Facial swelling Diagnosis: Principal (3) Facial cellulitis Diagnosis: Principal (4) Dental abscess Diagnosis: Principal Chief Complaint: Oral and dental pain Travel History International Travel<30 Days: No Contact w/Intl Traveler <30 Da: No Traveled to Known Affected Are: No History of Present Illness Patient is a 56-year-old female. Who presented to emergency department with evaluation of dental pain and facial swelling. Patient states that she started having dental pain 2 days ago. Yesterday she went to her dentist who prescribed some penicillin and pain medications. She was having right upper molar issues. She only took one antibiotic pill yesterday. When she woke up this morning she noted significant right facial swelling as well. Patient is able to swallow and tolerate her secretions denies any fever chills denies any history of diabetes or trauma. Is a smoker. Review of Systems Constitutional: DENIES: Diaphoretic episodes, Fatigue, Fever, Weight gain, Weight loss, Chills, Dizziness, Change in appetite, Night Sweats Endocrine: DENIES: Abnorml menstrual pattern, Heat/cold intolerance, Polydipsia , Polyuria, Polyphagia Eyes: DENIES: Blurred vision, Diplopia, Eye inflammation, Eye pain, Vision loss , Double Vision Ears, nose, mouth, throat: COMPLAINS OF: Oral lesions, Toothache, DENIES: Tinnitus, Hearing loss, Vertigo, Nasal discharge, Throat pain, Hoarseness, Ear Pain, Running Nose, Epistaxis, Sinus Pain, Odynophagia Respiratory: DENIES: Apneas, Cough, Snoring, Wheezing, Hemoptysis, Sputum production, Shortness of breath Cardiovascular: DENIES: Chest pain, Palpitations, Syncope, Dyspnea on Exertion , PND, Lower Extremity Edema, Orthopnea, Claudication Gastrointestinal: DENIES: Abdominal pain, Black stools, Bloody stools, Constipation, Diarrhea, Nausea, Vomiting, Difficulty Swallowing Genitourinary: DENIES: Abnormal vaginal bleeding, Dysmenorrhea, Dyspareunia Musculoskeletal: DENIES: Joint pain, Muscle aches, Stiffness, Joint Swelling Integumentary: DENIES: Abnormal pigmentation, Pruritus, Rash, Nail changes Hematologic/lymphatic: DENIES: Bruising, Lymphadenopathy Immunologic/allergic: DENIES: Eczema, Urticaria Neurologic: DENIES: Abnormal gait, Headache, Localized weakness, Paresthesias, Seizures, Speech Problems, Tremor, Poor Balance Psychiatric: DENIES: Anxiety, Confusion, Mood changes, Depression, Hallucinations Except as stated in HPI: all other systems reviewed are Neg Past Family Social History Past Medical History History of pneumonia Failed outpatient therapy for dental abscess/facial cellulitis on the right Past Surgical History Tonsillectomy Appendectomy Hysterectomy section Cholecystectomy Hernia repair Reported Medications Reported Meds & Active Scripts Active Reported Penicillin V Potassium 500 Mg Tab 500 Mg PO Q6H Tylenol-Codeine #3 (Acetaminophen-Codeine) 300-30 mg Tab 1 Tab PO Q4H PRN Allergies: Coded Allergies: No Known Allergies (Verified , 08/17/13) Active Ordered Medications Current Medications Sodium Chloride (NS Flush) 2 ml UNSCH PRN IV FLUSH FLUSH AFTER USING IV ACCESS Last administered on 09/20/17at 04:14; Start 09/20/17 at 04:00; Stop 09/20/17 at 07: 11; Status DC Clindamycin Phosphate 900 mg/ Sodium Chloride 106 ml @ 212 mls/hr ONCE ONCE IV ; Start 09/20/17 at 04:00; Stop 09/20/17 at 04:29; Status Cancel Morphine Sulfate (Morphine Inj) 4 mg ONCE ONCE IV PUSH Last administered on 09/20/17at 04:13; Start 09/20/17 at 04:00; Stop 09/20/17 at 04:03; Status DC Clindamycin/ Sodium Chloride 50 ml @ 100 mls/hr ONCE ONCE IV Last administered on 09/20/17at 04:40; Start 09/20/17 at 04:30; Stop 09/20/17 at 04:59; Status DC Iohexol (Omnipaque 350 Inj) 71 ml STK-MED ONCE IVCONTRAST Last administered on 09/20/17at 03:37; Start 09/20/17 at 03:37; Stop 09/20/17 at 05:47; Status DC Dexamethasone Sodium Phosphate (Decadron Inj) 8 mg ONCE ONCE IV PUSH Last administered on 09/20/17at 06:39; Start 09/20/17 at 06:45; Stop 09/20/17 at 06:46; Status DC Sodium Chloride (NS Flush) 2 ml UNSCH PRN IV FLUSH FLUSH AFTER USING IV ACCESS ; Start 09/20/17 at 07:00 Sodium Chloride (NS Flush) 2 ml BID IV FLUSH Last administered on 09/20/17at 09: 32; Start 09/20/17 at 09:00 Acetaminophen (Tylenol) 650 mg Q4H PRN PO TEMP > 100.4; Start 09/20/17 at 07:00 Ondansetron HCl (Zofran Inj) 4 mg Q6H PRN IVP NAUSEA OR VOMITING; Start at 07:00 Naloxone HCl (Narcan Inj) 0.4 mg UNSCH PRN IV PUSH SEE LABEL COMMENTS; Start at 07:00 Magnesium Hydroxide (Milk Of Magnesia Liq) 30 ml Q12H PRN PO Mild constipation ; Start 09/20/17 at 07:00 Sennosides (Senokot) 17.2 mg Q12H PRN PO Moderate constipation; Start 09/20/17 at 07:00 Bisacodyl (Dulcolax Supp) 10 mg DAILY PRN RECTAL SEVERE CONSITIPATION; Start at 07:00 Lactulose (Lactulose Liq) 30 ml DAILY PRN PO SEVERE CONSITIPATION; Start at 07:00 Clindamycin/ Sodium Chloride 50 ml @ 100 mls/hr Q6H IV ; Start 09/20/17 at 11:00 Dexamethasone Sodium Phosphate (Decadron Inj) 4 mg Q6H IV PUSH ; Start 09/20/17 at 13:00 Ketorolac Tromethamine (Toradol) 10 mg Q6H PRN PO PAIN GREATER THAN 5 Last administered on 09/20/17at 09:31; Start 09/20/17 at 07:30; Stop 09/25/17 at 07:29 Acetaminophen/ Hydrocodone Bitart ([place] 5-325 Mg) 1 tab Q4H PRN PO BREAKTHROUGH PAIN; Start 09/20/17 at 07:15 Family History Denies any major medical problems in her family Social History Smokes a pack a day of cigarettes Denies any illicit Rare alcoholic beverage Physical Exam Vital Signs Vital Signs Date Time Temp Pulse Resp B/P (MAP) Pulse Ox O2 Delivery O2 Flow Rate FiO2 09/20/17 09:05 (96) 09/20/17 08:49 97.9 61 20 145/72 (96) 94 09/20/17 07:01 70 18 170/92 (118) 93 Room Air 09/20/17 06:42 69 16 174/79 (110) 94 Room Air 09/20/17 06:18 69 16 96 Room Air 09/20/17 03:43 97.8 82 16 152/84 (106) 95 Physical Exam GENERAL: This is a well-nourished, well-developed patient, in no apparent distress. Has right-sided facial swelling and edema that is very obvious SKIN: No rashes, ecchymoses or lesions. Cool and dry. Right sided facial swelling and erythema HEAD: Atraumatic. Normocephalic. No temporal or scalp tenderness. EYES: Pupils equal round and reactive. Extraocular motions intact. No scleral icterus. No injection or drainage. ENT: Nose without bleeding, purulent drainage or septal hematoma. Throat without erythema, tonsillar hypertrophy or exudate. Uvula midline. Airway patent. Right-sided facial swelling with edema probably due to cellulitis of the face and dental labs NECK: Trachea midline. No JVD or lymphadenopathy. Supple, nontender, no meningeal signs. CARDIOVASCULAR: Regular rate and rhythm without murmurs, gallops, or rubs. S1- S2 no S3 or S4 RESPIRATORY: Clear to auscultation. Breath sounds equal bilaterally. No wheezes , rales, or rhonchi. GASTROINTESTINAL: Abdomen soft, non-tender, nondistended. No hepato-splenomegaly , or palpable masses. No guarding. MUSCULOSKELETAL: Extremities without clubbing, cyanosis, or edema. No joint tenderness, effusion, or edema noted. No calf tenderness. Negative Homans sign bilaterally. NEUROLOGICAL: Awake and alert. Cranial nerves II through XII intact. Motor and sensory grossly within normal limits. Five out of 5 muscle strength in all muscle groups. Normal speech. Insight and judgment is good Mood and behavior is appropriate Laboratory Laboratory Tests Test 09/20/17 04:00 White Blood Count 8.2 Red Blood Count 4.71 Hemoglobin 14.0 Hematocrit 41.2 Mean Corpuscular Volume 87.5 Mean Corpuscular Hemoglobin 29.7 Mean Corpuscular Hemoglobin Concent 34.0 Red Cell Distribution Width 12.9 Platelet Count 224 Mean Platelet Volume 8.0 Neutrophils (%) (Auto) 68.3 Lymphocytes (%) (Auto) 21.8 Monocytes (%) (Auto) 8.9 Eosinophils (%) (Auto) 0.8 Basophils (%) (Auto) 0.2 Neutrophils # (Auto) 5.6 Lymphocytes # (Auto) 1.8 Monocytes # (Auto) 0.7 Eosinophils # (Auto) 0.1 Basophils # (Auto) 0.0 CBC Comment DIFF FINAL Differential Comment Prothrombin Time 10.5 Prothromb Time International Ratio 1.0 Activated Partial Thromboplast Time 29.8 Blood Urea Nitrogen 7 Creatinine 0.59 Random Glucose 120 Total Protein 6.4 Albumin 3.2 Calcium Level 8.4 Alkaline Phosphatase 157 Aspartate Amino Transf (AST/SGOT) 187 Alanine Aminotransferase (ALT/SGPT) 135 Total Bilirubin 1.0 Sodium Level 142 Potassium Level 3.6 Chloride Level 108 Carbon Dioxide Level 26.2 Anion Gap 8 Estimat Glomerular Filtration Rate 105 Result Diagram: 09/20/17 0400 09/20/17 0400 Imaging Last Impressions Maxillofacial CT 09/20/17 0000 Signed Impressions: Service Date/Time: Wednesday, September 20, 2017 05:42 - CONCLUSION: 1. Prominent area of soft tissue thickening adjacent to the right body of the mandible measuring up to 2.7 cm in thickness. There is a mild pattern of enhancement without discrete focal fluid collection. No extension deep to the mandible. 2. Loss of delineation of the posterior maxillary bone adjacent to the last molar suggesting possible periodontal abscess. Nirmal Linton MD Caprini VTE Risk Assessment Caprini VTE Risk Assessment: No/Low Risk (score <= 1) Caprini Risk Assessment Model Point Value = 1 Point Value = 2 Point Value = 3 Point Value = 5 Age 41-60 Minor surgery BMI > 25 kg/m2 Swollen legs Varicose veins or History of unexplained or recurrent spontaneous Oral contraceptives or hormone replacement Sepsis (< 1 month) Serious lung disease, including pneumonia (< 1 month) Abnormal pulmonary function Acute myocardial infarction Congestive heart failure (< 1 month) History of inflammatory bowel disease Medical patient at bed rest Age 61-74 Arthroscopic surgery Major open surgery (> 45 min) Laparoscopic surgery (> 45 min) Malignancy Confined to bed (> 72 hours) Immobilizing plaster cast Central venous access Age >= 75 History of VTE Family history of VTE Factor V Leiden Prothrombin [id number] Lupus anticoagulant Anticardiolipin antibodies Elevated serum homocysteine Heparin-induced thrombocytopenia Other congenital or acquired thrombophilia Stroke (< 1 month) Elective arthroplasty Hip, pelvis, or leg fracture Acute spinal cord injury (< 1 month) Prophylaxis Regimen Total Risk Factor Score Risk Level Prophylaxis Regimen 0-1 Low Early ambulation 2 Moderate Order ONE of the following: *Sequential Compression Device (SCD) *Heparin 5000 units SQ BID 3-4 Higher Order ONE of the following medications: *Heparin 5000 units SQ TID *Enoxaparin/Lovenox 40 mg SQ daily (WT < 150 kg, CrCl > 30 mL/min) *Enoxaparin/Lovenox 30 mg SQ daily (WT < 150 kg, CrCl > 10-29 mL/min) *Enoxaparin/Lovenox 30 mg SQ BID (WT < 150 kg, CrCl > 30 mL/min) AND/OR *Sequential Compression Device (SCD) 5 or more Highest Order ONE of the following medications: *Heparin 5000 units SQ TID (Preferred with Epidurals) *Enoxaparin/Lovenox 40 mg SQ daily (WT < 150 kg, CrCl > 30 mL/min) *Enoxaparin/Lovenox 30 mg SQ daily (WT < 150 kg, CrCl > 10-29 mL/min) *Enoxaparin/Lovenox 30 mg SQ BID (WT < 150 kg, CrCl > 30 mL/min) AND *Sequential Compression Device (SCD) Assessment and Plan Assessment and Plan Failed outpatient therapy for facial cellulitis and dental abscess has been given Decadron as well as clindamycin Tobacco abuse recommend smoking cessation nicotine patch Dental pain continue on current pain medications GI prophylaxis with Pepcid DVT prophylaxis with SCDs and SHAUN hose increase activity Discussed with patient and RN Code Status Full code Discussed Condition With Discussed with patient and RN and the emergency room physician Physician Certification 2 Midnight Certification Type: Admission for Inpatient Services Order for Inpatient Services The services are ordered in accordance with Medicare regulations or non- Medicare payer requirements, as applicable. In the case of services not specified as inpatient-only, they are appropriately provided as inpatient services in accordance with the 2-midnight benchmark. Estimated LOS (days): 2 days is the estimated time the patient will need to remain in the hospital, assuming treatment plan goals are met and no additional complications. Post-Hospital Plan: Steve Lizarraga DO Sep 20, 2017 09:53
[2017-09-20] MEDS ORDERED: METOCLOPRAMIDE HCL 10 MG/2 ML VIAL IV PUSH PRN (10:00)
[2017-09-20] MEDS ORDERED: TEMAZEPAM 15 MG CAP PO PRN (10:00)
[2017-09-20] MEDS ORDERED: oxyCODONE/ACETAMINOPHEN 5 MG/325 MG TAB PO PRN (10:00)
[2017-09-20] MEDS ORDERED: MORPHINE SULFATE 4 MG/ML INJ IV PUSH PRN (10:00)
[2017-09-20] MEDS ORDERED: MORPHINE SULFATE 2 MG/ML INJ IV PUSH PRN (10:00)
[2017-09-20] MEDS ORDERED: NICOTINE 14 MG/24 HR PATCH T-DERMAL ONE (10:30)
[2017-09-20] MEDS: SODIUM CHLOR 0.9% 1000 ML INJ 1,000 ML IV SCH ×2 (11:27→20:35)
[2017-09-20] MEDS: CLINDAMYCIN 600 MG/NS PREMIX 50 ML IV SCH ×3 (11:27→23:45)
[2017-09-20] MEDS: oxyCODONE/ACETAMINOPHEN 10 MG/325 MG TAB PO PRN ×2 (12:46→18:51)
[2017-09-20] MEDS: DEXAMETHASONE SOD PHOS 4 MG/ML VIAL IV PUSH SCH ×2 (12:47→18:52)
[2017-09-20] MEDS: DOCUSATE SODIUM 50 MG/SENNA 8.6 MG TAB PO SCH (20:34)
[2017-09-20] MEDS: SODIUM CHLORIDE 0.9% FLUSH 10 ML FLUSH IV FLUSH SCH (20:35)
[2017-09-21] MEDS: DEXAMETHASONE SOD PHOS 4 MG/ML VIAL IV PUSH SCH ×4 (00:43→17:47)
[2017-09-21 01:57] VITALS: BP 120/62; PULSE 70; RESP 17; TEMP 97.1; O2SAT 94
[2017-09-21 04:42] VITALS: BP 120/58; PULSE 70; RESP 18; TEMP 97; O2SAT 95
[2017-09-21] MEDS: CLINDAMYCIN 600 MG/NS PREMIX 50 ML IV SCH ×4 (05:24→22:14)
[2017-09-21] MEDS: SODIUM CHLOR 0.9% 1000 ML INJ 1,000 ML IV SCH ×2 (05:27→15:08)
[2017-09-21 07:31] LABS: AUTOMATED NEUTROPHIL # 12.5 TH/MM3 (1.8-7.7); BASOPHIL % 0.2 % (0.0-2.0); HEMATOCRIT 36.4 % (35.0-46.0); HEMOGLOBIN 12.3 GM/DL (11.6-15.3); LYMPH % 5.5 % (9.0-44.0); LYMPHOCYTE # 0.8 TH/MM3 (1.0-4.8); MEAN CORPUSCULAR HEMOGLOBIN 29.5 PG (27.0-34.0); MEAN CORPUSCULAR HGB CONC 33.9 % (32.0-36.0); MEAN PLATELET VOLUME 8.2 FL (7.0-11.0); MONOCYTE # 0.4 TH/MM3 (0-0.9); NEUT % 91.3 % (16.0-70.0); PLATELET COUNT 220 TH/MM3 (150-450); RED BLOOD COUNT 4.19 MIL/MM3 (4.00-5.30); RED CELL DISTRIBUTION WIDTH 12.8 % (11.6-17.2); WHITE BLOOD COUNT 13.7 TH/MM3 (4.0-11.0)
[2017-09-21 08:22] LABS: ALBUMIN 2.8 GM/DL (3.4-5.0); AST (GOT) 49 U/L (15-37); BICARBONATE 24.9 MEQ/L (21.0-32.0); BLOOD UREA NITROGEN 9 MG/DL (7-18); CALCIUM 8.2 MG/DL (8.5-10.1); CHLORIDE 111 MEQ/L (98-107); CREATININE 0.53 MG/DL (0.50-1.00); GLOMERULAR FILTRATION RATE 118 ML/MIN (>89); GLUCOSE,RANDOM 139 MG/DL (74-106); MAGNESIUM 2.1 MG/DL (1.5-2.5); SODIUM (NA) 141 MEQ/L (136-145)
[2017-09-21 08:23] LABS: ALKALINE PHOSPHATASE 129 U/L (45-117); ALT (GPT) 118 U/L (10-53); FREE T4 1.22 NG/DL (0.76-1.46); PHOSPHORUS 2.9 MG/DL (2.5-4.9); TOTAL BILIRUBIN ADULT 0.2 MG/DL (0.2-1.0); TOTAL PROTEIN 5.7 GM/DL (6.4-8.2)
[2017-09-21 08:36] VITALS: BP 132/63; PULSE 65; RESP 20; TEMP 98.3; O2SAT 94
[2017-09-21] MEDS: SODIUM CHLORIDE 0.9% FLUSH 10 ML FLUSH IV FLUSH SCH ×2 (08:41→21:00)
[2017-09-21] MEDS: DOCUSATE SODIUM 50 MG/SENNA 8.6 MG TAB PO SCH ×2 (08:42→22:14)
[2017-09-21] MEDS: REMOVE OLD PATCH T-DERMAL SCH (08:42)
[2017-09-21] MEDS: NICOTINE 14 MG/24 HR PATCH T-DERMAL SCH (08:43)
[2017-09-21] MEDS: oxyCODONE/ACETAMINOPHEN 10 MG/325 MG TAB PO PRN ×3 (08:47→22:21)
--- NOTE | 2017-09-21 09:54 | HHI.PR ---
Subjective Remarks Patient is a 56-year-old female. Who presented to emergency department with evaluation of dental pain and facial swelling. Patient states that she started having dental pain 2 days ago. Yesterday she went to her dentist who prescribed some penicillin and pain medications. She was having right upper molar issues. She only took one antibiotic pill yesterday. When she woke up this morning she noted significant right facial swelling as well. Patient is able to swallow and tolerate her secretions denies any fever chills denies any history of diabetes or trauma. Is a smoker. 3-3 patient has less swelling on right side of face Continue current antibiotics Can follow-up with Dr. Perdue on Saturday for tooth extraction Continue current treatments Discussed with patient and RN Objective Vitals Vital Signs Date Time Temp Pulse Resp B/P (MAP) Pulse Ox O2 Delivery O2 Flow Rate FiO2 09/21/17 08:36 98.3 65 20 132/63 (86) 94 09/21/17 04:42 97.0 70 18 120/58 (78) 95 09/21/17 01:57 97.1 70 17 120/62 (81) 94 09/20/17 19:46 98.4 78 18 124/58 (80) 94 09/20/17 15:25 98.6 74 18 120/63 (82) 95 09/20/17 12:05 98.3 74 20 127/61 (83) 94 I/O 09/20/17 09/20/17 09/20/17 09/21/17 09/21/17 09/21/17 07:00 15:00 23:00 07:00 15:00 23:00 Intake Total 100 ml Balance 100 ml Intake IV Total 100 ml # Voids 2 Result Diagram: 09/21/17 0715 09/21/17 0715 Other Results Laboratory Tests Test 09/20/17 04:00 09/21/17 07:15 White Blood Count 8.2 TH/MM3 13.7 TH/MM3 Red Blood Count 4.71 MIL/MM3 4.19 MIL/MM3 Hemoglobin 14.0 GM/DL 12.3 GM/DL Hematocrit 41.2 % 36.4 % Mean Corpuscular Volume 87.5 FL 87.0 FL Mean Corpuscular Hemoglobin 29.7 PG 29.5 PG Mean Corpuscular Hemoglobin Concent 34.0 % 33.9 % Red Cell Distribution Width 12.9 % 12.8 % Platelet Count 224 TH/MM3 220 TH/MM3 Mean Platelet Volume 8.0 FL 8.2 FL Neutrophils (%) (Auto) 68.3 % 91.3 % Lymphocytes (%) (Auto) 21.8 % 5.5 % Monocytes (%) (Auto) 8.9 % 3.0 % Eosinophils (%) (Auto) 0.8 % 0.0 % Basophils (%) (Auto) 0.2 % 0.2 % Neutrophils # (Auto) 5.6 TH/MM3 12.5 TH/MM3 Lymphocytes # (Auto) 1.8 TH/MM3 0.8 TH/MM3 Monocytes # (Auto) 0.7 TH/MM3 0.4 TH/MM3 Eosinophils # (Auto) 0.1 TH/MM3 0.0 TH/MM3 Basophils # (Auto) 0.0 TH/MM3 0.0 TH/MM3 CBC Comment DIFF FINAL DIFF FINAL Differential Comment Prothrombin Time 10.5 SEC Prothromb Time International Ratio 1.0 RATIO Activated Partial Thromboplast Time 29.8 SEC Blood Urea Nitrogen 7 MG/DL 9 MG/DL Creatinine 0.59 MG/DL 0.53 MG/DL Random Glucose 120 MG/DL 139 MG/DL Total Protein 6.4 GM/DL 5.7 GM/DL Albumin 3.2 GM/DL 2.8 GM/DL Calcium Level 8.4 MG/DL 8.2 MG/DL Alkaline Phosphatase 157 U/L 129 U/L Aspartate Amino Transf (AST/SGOT) 187 U/L 49 U/L Alanine Aminotransferase (ALT/SGPT) 135 U/L 118 U/L Total Bilirubin 1.0 MG/DL 0.2 MG/DL Sodium Level 142 MEQ/L 141 MEQ/L Potassium Level 3.6 MEQ/L 3.9 MEQ/L Chloride Level 108 MEQ/L 111 MEQ/L Carbon Dioxide Level 26.2 MEQ/L 24.9 MEQ/L Anion Gap 8 MEQ/L 5 MEQ/L Estimat Glomerular Filtration Rate 105 ML/MIN 118 ML/MIN Phosphorus Level 2.9 MG/DL Magnesium Level 2.1 MG/DL Free Thyroxine 1.22 NG/DL Thyroid Stimulating Hormone 3rd Gen 0.090 uIU/ML Imaging Last Impressions Maxillofacial CT 09/20/17 0000 Signed Impressions: Service Date/Time: Arturo, September 20, 2017 05:42 - CONCLUSION: 1. Prominent area of soft tissue thickening adjacent to the right body of the mandible measuring up to 2.7 cm in thickness. There is a mild pattern of enhancement without discrete focal fluid collection. No extension deep to the mandible. 2. Loss of delineation of the posterior maxillary bone adjacent to the last molar suggesting possible periodontal abscess. Nirmal Linton MD Objective Remarks GENERAL: This is a well-nourished, well-developed patient, in no apparent distress. Has right-sided facial swelling and edema that is very obvious but improved from yesterday SKIN: No rashes, ecchymoses or lesions. Cool and dry. Right sided facial swelling and erythema HEAD: Atraumatic. Normocephalic. No temporal or scalp tenderness. EYES: Pupils equal round and reactive. Extraocular motions intact. No scleral icterus. No injection or drainage. ENT: Nose without bleeding, purulent drainage or septal hematoma. Throat without erythema, tonsillar hypertrophy or exudate. Uvula midline. Airway patent. Now has less right-sided facial swelling with edema probably due to cellulitis of the face and dental abscess NECK: Trachea midline. No JVD or lymphadenopathy. Supple, nontender, no meningeal signs. CARDIOVASCULAR: Regular rate and rhythm without murmurs, gallops, or rubs. S1- S2 no S3 or S4 RESPIRATORY: Clear to auscultation. Breath sounds equal bilaterally. No wheezes , rales, or rhonchi. GASTROINTESTINAL: Abdomen soft, non-tender, nondistended. No hepato-splenomegaly , or palpable masses. No guarding. MUSCULOSKELETAL: Extremities without clubbing, cyanosis, or edema. No joint tenderness, effusion, or edema noted. No calf tenderness. Negative Homans sign bilaterally. NEUROLOGICAL: Awake and alert. Cranial nerves II through XII intact. Motor and sensory grossly within normal limits. Five out of 5 muscle strength in all muscle groups. Normal speech. Insight and judgment is good Mood and behavior is appropriate Medications and IVs Current Medications Sodium Chloride (NS Flush) 2 ml UNSCH PRN IV FLUSH FLUSH AFTER USING IV ACCESS Last administered on 09/20/17at 04:14; Start 09/20/17 at 04:00; Stop 09/20/17 at 07: 11; Status DC Clindamycin Phosphate 900 mg/ Sodium Chloride 106 ml @ 212 mls/hr ONCE ONCE IV ; Start 09/20/17 at 04:00; Stop 09/20/17 at 04:29; Status Cancel Morphine Sulfate (Morphine Inj) 4 mg ONCE ONCE IV PUSH Last administered on 09/20/17at 04:13; Start 09/20/17 at 04:00; Stop 09/20/17 at 04:03; Status DC Clindamycin/ Sodium Chloride 50 ml @ 100 mls/hr ONCE ONCE IV Last administered on 09/20/17at 04:40; Start 09/20/17 at 04:30; Stop 09/20/17 at 04:59; Status DC Iohexol (Omnipaque 350 Inj) 71 ml STK-MED ONCE IVCONTRAST Last administered on 09/20/17at 03:37; Start 09/20/17 at 03:37; Stop 09/20/17 at 05:47; Status DC Dexamethasone Sodium Phosphate (Decadron Inj) 8 mg ONCE ONCE IV PUSH Last administered on 09/20/17at 06:39; Start 09/20/17 at 06:45; Stop 09/20/17 at 06:46; Status DC Sodium Chloride (NS Flush) 2 ml UNSCH PRN IV FLUSH FLUSH AFTER USING IV ACCESS ; Start 09/20/17 at 07:00; Stop 09/20/17 at 10:19; Status DC Sodium Chloride (NS Flush) 2 ml BID IV FLUSH Last administered on 09/20/17at 09: 32; Start 09/20/17 at 09:00; Stop 09/20/17 at 10:19; Status DC Acetaminophen (Tylenol) 650 mg Q4H PRN PO TEMP > 100.4; Start 09/20/17 at 07:00 ; Stop 09/20/17 at 10:19; Status DC Ondansetron HCl (Zofran Inj) 4 mg Q6H PRN IVP NAUSEA OR VOMITING; Start at 07:00; Stop 09/20/17 at 10:19; Status DC Naloxone HCl (Narcan Inj) 0.4 mg UNSCH PRN IV PUSH SEE LABEL COMMENTS; Start at 07:00; Stop 09/20/17 at 10:19; Status DC Magnesium Hydroxide (Milk Of Magnesia Liq) 30 ml Q12H PRN PO Mild constipation ; Start 09/20/17 at 07:00; Stop 09/20/17 at 10:19; Status DC Sennosides (Senokot) 17.2 mg Q12H PRN PO Moderate constipation; Start 09/20/17 at 07:00; Stop 09/20/17 at 10:19; Status DC Bisacodyl (Dulcolax Supp) 10 mg DAILY PRN RECTAL SEVERE CONSITIPATION; Start at 07:00; Stop 09/20/17 at 10:19; Status DC Lactulose (Lactulose Liq) 30 ml DAILY PRN PO SEVERE CONSITIPATION; Start at 07:00; Stop 09/20/17 at 10:19; Status DC Clindamycin/ Sodium Chloride 50 ml @ 100 mls/hr Q6H IV Last administered on 09/21/17at 05:24; Start 09/20/17 at 11:00 Dexamethasone Sodium Phosphate (Decadron Inj) 4 mg Q6H IV PUSH Last administered on 09/21/17at 06:18; Start 09/20/17 at 13:00 Ketorolac Tromethamine (Toradol) 10 mg Q6H PRN PO PAIN GREATER THAN 5 Last administered on 09/20/17at 09:31; Start 09/20/17 at 07:30; Stop 09/20/17 at 09:53; Status DC Acetaminophen/ Hydrocodone Bitart (Cromwell 5-325 Mg) 1 tab Q4H PRN PO BREAKTHROUGH PAIN; Start 09/20/17 at 07:15; Stop 09/20/17 at 09:53; Status DC Sodium Chloride 1,000 ml @ 100 mls/hr Q10H IV Last administered on 09/20/17at 20 :35; Start 09/20/17 at 10:00 Sodium Chloride (NS Flush) 2 ml UNSCH PRN IV FLUSH FLUSH AFTER USING IV ACCESS ; Start 09/20/17 at 10:00 Sodium Chloride (NS Flush) 2 ml BID IV FLUSH ; Start 09/20/17 at 21:00 Acetaminophen (Tylenol) 650 mg Q4H PRN PO TEMP > 100.4; Start 09/20/17 at 10:00 Ondansetron HCl (Zofran Inj) 4 mg Q6H PRN IVP NAUSEA OR VOMITING; Start at 10:00 Metoclopramide HCl (Reglan Inj) 5 mg Q6H PRN IV PUSH NAUSEA OR VOMITING; Start 09/20/17 at 10:00 Temazepam (Restoril) 15 mg HS PRN PO INSOMNIA; Start 09/20/17 at 10:00 Acetaminophen (Tylenol) 650 mg Q6H PRN PO PAIN SCALE 1 TO 2; Start 09/20/17 at 10:00 Oxycodone/ Acetaminophen (Percocet 5-325 Mg) 1 tab Q6H PRN PO PAIN SCALE 3 TO 5 Last administered on 09/21/17at 00:50; Start 09/20/17 at 10:00 Oxycodone/ Acetaminophen (Percocet 10-325 Mg) 1 tab Q6H PRN PO PAIN SCALE 6 TO 10 Last administered on 09/21/17at 08:47; Start 09/20/17 at 10:00 Morphine Sulfate (Morphine Inj) 2 mg Q3H PRN IV PUSH Pain 3-5; if unable to take PO; Start 09/20/17 at 10:00 Morphine Sulfate (Morphine Inj) 4 mg Q3H PRN IV PUSH Pain 6-10;if unable to take PO; Start 09/20/17 at 10:00 Naloxone HCl (Narcan Inj) 0.4 mg UNSCH PRN IV PUSH SEE LABEL COMMENTS; Start at 10:00 Senna/Docusate Sodium (Monica-Colace) 1 tab BID PO Last administered on 09/21/17at 08:42; Start 09/20/17 at 21:00 Magnesium Hydroxide (Milk Of Magnesia Liq) 30 ml Q12H PRN PO Mild constipation ; Start 09/20/17 at 10:00 Sennosides (Senokot) 17.2 mg Q12H PRN PO Moderate constipation; Start 09/20/17 at 10:00 Bisacodyl (Dulcolax Supp) 10 mg DAILY PRN RECTAL SEVERE CONSITIPATION; Start at 10:00 Lactulose (Lactulose Liq) 30 ml DAILY PRN PO SEVERE CONSITIPATION; Start at 10:00 Nicotine (Habitrol 14 Mg Patch.24 Hr) 1 patch ONCE ONCE T-DERMAL Last administered on 09/20/17at 11:27; Start 09/20/17 at 10:30; Stop 09/20/17 at 10:31; Status DC Nicotine (Habitrol 14 Mg Patch.24 Hr) 1 patch DAILY T-DERMAL Last administered on 09/21/17at 08:43; Start 09/21/17 at 09:00 Miscellaneous Information 1 DAILY T-DERMAL Last administered on 09/21/17at 08:42 ; Start 09/21/17 at 09:00 A/P Problem List: (1) Tobacco abuse ICD Code: Z72.0 - Tobacco use Status: Acute (2) Facial swelling ICD Code: R22.0 - Localized swelling, mass and lump, head Status: Acute (3) Facial cellulitis ICD Code: L03.211 - Cellulitis of face Status: Acute (4) Dental abscess ICD Code: K04.7 - Periapical abscess without sinus Assessment and Plan Failed outpatient therapy for facial cellulitis and dental abscess has been given Decadron as well as clindamycin has had improvement from yesterday-- hopefully discharge tomorrow Tobacco abuse recommend smoking cessation nicotine patch Dental pain continue on current pain medications GI prophylaxis with Pepcid DVT prophylaxis with SCDs and SHAUN hose increase activity We will start Lactinex DR PERDUE ORAL FACIAL STATES CONTINUE ANTIBIOTICS AND STEROIDS OVER WEEKEND AND HAVE PATIENT FOLLOW UP IN MY OFFICE FOR TOOTH EXTRACTION on Saturday [phone] HE IS AVAILABLE IF RIGHT FACE WORSENS Discussed with patient and RN Code Status Full code Discussed Condition With Discussed with patient and RN and the emergency room physician Discharge Planning Discharge planning for tomorrow Steve Tolbert DO Sep 21, 2017 09:54
[2017-09-21 11:07] VITALS: BP 126/64; PULSE 63; RESP 18; TEMP 97.8; O2SAT 96
[2017-09-21 12:11] LABS: HEMOGLOBIN A1C 5.6 % (4.3-6.0)
[2017-09-21] MEDS: LACTOBACILLUS ACIDOPHILUS TAB PO SCH ×2 (13:07→16:56)
--- NOTE | 2017-09-21 13:55 | MB ---
cc: Rodo Perdue DMD DATE OF CONSULT: 09/21/2017 REASON FOR CONSULTATION: Decayed tooth/abscess. HISTORY OF PRESENT ILLNESS: This is a 56-year-old female who presented to the ED status post pain. It started on Saturday on the right side of the face. There is swelling on the right side of the face on Saturday, which was yesterday. The day before that she had seen her dentist, Dr. Vicky Bruner, and she was given antibiotics, but when the patient woke up the next day, she just had swelling on the right side of the face. I have seen and examined this patient this morning. Her nurse is at bedside. She is alert, awake, and oriented x3, in no acute distress. She reports some soreness. Denies any fever, chills, nausea, vomiting, any shortness of breath, any difficulty eating or swallowing or speaking. PAST MEDICAL HISTORY: Denied. MEDICATIONS: The antibiotic penicillin given by her dentist. ALLERGIES: DENIED. PAST SURGICAL HISTORY: Hysterectomy, cholecystectomy, hernia repair, tonsillectomy, appendectomy. SOCIAL HISTORY: Denies any alcohol. One pack per day of cigarette smoking. Denies any illicit drug use. PHYSICAL EXAMINATION: VITAL SIGNS: Temperature is 97.8, pulse is 63, respiration 18, blood pressure is /64 with an oxygen saturation of 96%. HEENT: Examination of face shows mild edema on the right side of the face is diffuse, it is very soft, no collection that is noted. Intraorally, decayed teeth are noted on the right maxillary region. There is no elevation of floor of the mouth or the tongue. There is no gross edema on the vestibule on the right side maxillary region. No trismus noted. Some tenderness noted on palpation of the maxillary dentition posteriorly. NECK: No edema. IMAGING: CT scan of the facial bones shows a decayed right maxillary molar with some soft tissue edema that is noted on the right side of the face. LABORATORY DATA: White count is 13.7 today, it was 8.2 yesterday, could be secondary to the steroids that are noted. IMPRESSION AND PLAN: This is a 56-year-old with a longstanding decayed right maxillary molar with now swelling cellulitis on the right side of the face, which patient says has gotten better after getting antibiotics here in the hospital and also the steroids. No acute distress now. We will plan for continuation of the IV antibiotics and have the patient discharged to our office. So Saturday morning, we will extract the tooth and any other procedures as deemed necessary at the time also. Discussed this plan with the patient. She is agreeable to that. Have the patient follow up in our office [facility], Dr. Perdue, . Also please send home patient on some antibiotics when she is discharged. Rodo Perdue DMD RT/cc , 11:18 AM , 01:54 PM
[2017-09-21 15:57] VITALS: BP 133/64; PULSE 64; RESP 20; TEMP 98.7; O2SAT 93
[2017-09-21 20:05] VITALS: BP 144/64; PULSE 63; RESP 17; TEMP 98.6; O2SAT 95
[2017-09-22 00:31] VITALS: BP 115/58; PULSE 58; RESP 17; TEMP 98; O2SAT 95
[2017-09-22] MEDS: DEXAMETHASONE SOD PHOS 4 MG/ML VIAL IV PUSH SCH ×2 (01:42→06:27)
[2017-09-22] MEDS: SODIUM CHLOR 0.9% 1000 ML INJ 1,000 ML IV SCH ×2 (02:10→11:07)
[2017-09-22] MEDS: oxyCODONE/ACETAMINOPHEN 10 MG/325 MG TAB PO PRN ×2 (04:12→10:17)
[2017-09-22] MEDS: CLINDAMYCIN 600 MG/NS PREMIX 50 ML IV SCH ×2 (04:12→10:17)
[2017-09-22 05:11] VITALS: BP 134/67; PULSE 62; RESP 17; TEMP 97.5; O2SAT 95
[2017-09-22] MEDS: DOCUSATE SODIUM 50 MG/SENNA 8.6 MG TAB PO SCH (08:25)
[2017-09-22] MEDS: REMOVE OLD PATCH T-DERMAL SCH (08:25)
[2017-09-22] MEDS: NICOTINE 14 MG/24 HR PATCH T-DERMAL SCH (08:25)
[2017-09-22] MEDS: LACTOBACILLUS ACIDOPHILUS TAB PO SCH (08:25)
[2017-09-22] MEDS: SODIUM CHLORIDE 0.9% FLUSH 10 ML FLUSH IV FLUSH SCH (08:25)
[2017-09-22 08:40] VITALS: BP 134/66; PULSE 66; RESP 18; TEMP 98.7; O2SAT 93
[2017-09-22 08:47] LABS: AUTOMATED NEUTROPHIL # 10.8 TH/MM3 (1.8-7.7); HEMATOCRIT 36.5 % (35.0-46.0); LYMPH % 4.3 % (9.0-44.0); LYMPHOCYTE # 0.5 TH/MM3 (1.0-4.8); MEAN CELL VOLUME 87.5 FL (80.0-100.0); MEAN CORPUSCULAR HEMOGLOBIN 28.7 PG (27.0-34.0); MEAN CORPUSCULAR HGB CONC 32.8 % (32.0-36.0); MEAN PLATELET VOLUME 8.9 FL (7.0-11.0); MONO % 4.4 % (0.0-8.0); MONOCYTE # 0.5 TH/MM3 (0-0.9); NEUT % 91.3 % (16.0-70.0); PLATELET COUNT 237 TH/MM3 (150-450); RED BLOOD COUNT 4.17 MIL/MM3 (4.00-5.30); WHITE BLOOD COUNT 11.9 TH/MM3 (4.0-11.0)
[2017-09-22 10:02] LABS: ALBUMIN 2.6 GM/DL (3.4-5.0); AST (GOT) 18 U/L (15-37); BICARBONATE 23.6 MEQ/L (21.0-32.0); BLOOD UREA NITROGEN 14 MG/DL (7-18); CALCIUM 7.9 MG/DL (8.5-10.1); CHLORIDE 110 MEQ/L (98-107); GLOMERULAR FILTRATION RATE 103 ML/MIN (>89); GLUCOSE,RANDOM 118 MG/DL (74-106); SODIUM (NA) 143 MEQ/L (136-145)
[2017-09-22 10:05] LABS: ALKALINE PHOSPHATASE 104 U/L (45-117); ALT (GPT) 74 U/L (10-53); TOTAL BILIRUBIN ADULT 0.2 MG/DL (0.2-1.0); TOTAL PROTEIN 5.4 GM/DL (6.4-8.2)
[2017-09-22] MEDS ORDERED: PRED20 PO (10:23)
[2017-09-22] MEDS ORDERED: CLIN300C5 PO (10:23)
[2017-09-22] MEDS ORDERED: LACTTAB8 PO (10:23)
[2017-09-22] MEDS ORDERED: OXYC1TAB63 PO (10:23)
[2017-09-22] MEDS ORDERED: NICO14DI23 T-DERMAL (10:23)
--- NOTE | 2017-09-22 10:24 | HHI.DCPOC ---
Discharge Care Plan Diagnosis: (1) Dental abscess (2) Tobacco abuse (3) Facial cellulitis (4) Facial swelling Goals to Promote Your Health * To prevent worsening of your condition and complications * To maintain your health at the optimal level Directions to Meet Your Goals Take your medications as prescribed Follow your dietary instruction Follow activity as directed Keep your appointments as scheduled Take your immunizations and boosters as scheduled If your symptoms worsen call your PCP, if no PCP go to Urgent Care Center or Emergency Room Smoking is Dangerous to Your Health. Avoid second hand smoke Call the 24-hour hour crisis hotline for domestic abuse at Wiliam Lucas DO Sep 22, 2017 10:24
--- NOTE | 2017-09-22 10:27 | HHI.DS ---
Discharge Summary Admission Date Sep 20, 2017 at 08:44 Discharge Date: Sep 22, 2017 Admitting Diagnosis facial cellulitis, facial swelling (1) Tobacco abuse ICD Code: Z72.0 - Tobacco use Diagnosis: Principal Status: Acute (2) Facial swelling ICD Code: R22.0 - Localized swelling, mass and lump, head Diagnosis: Principal Status: Acute (3) Facial cellulitis ICD Code: L03.211 - Cellulitis of face Diagnosis: Principal Status: Acute (4) Dental abscess ICD Code: K04.7 - Periapical abscess without sinus Diagnosis: Principal Procedures None Brief History - From Admission Patient is a 56-year-old female. Who presented to emergency department with evaluation of dental pain and facial swelling. Patient states that she started having dental pain 2 days ago. Yesterday she went to her dentist who prescribed some penicillin and pain medications. She was having right upper molar issues. She only took one antibiotic pill yesterday. When she woke up this morning she noted significant right facial swelling as well. Patient is able to swallow and tolerate her secretions denies any fever chills denies any history of diabetes or trauma. Is a smoker. CBC/BMP: 09/22/17 0637 09/22/17 0637 Significant Findings Laboratory Tests Test 09/20/17 04:00 09/21/17 07:15 09/22/17 06:37 Monocytes (%) (Auto) 8.9 % (0.0-8.0) Random Glucose 120 MG/DL (74-106) 139 MG/DL (74-106) 118 MG/DL (74-106) Albumin 3.2 GM/DL (3.4-5.0) 2.8 GM/DL (3.4-5.0) 2.6 GM/DL (3.4-5.0) Calcium Level 8.4 MG/DL (8.5-10.1) 8.2 MG/DL (8.5-10.1) 7.9 MG/DL (8.5-10.1) Alkaline Phosphatase 157 U/L (45-117) 129 U/L (45-117) Aspartate Amino Transf (AST/SGOT) 187 U/L (15-37) 49 U/L (15-37) Alanine Aminotransferase (ALT/SGPT) 135 U/L (10-53) 118 U/L (10-53) 74 U/L (10-53) Chloride Level 108 MEQ/L (98-107) 111 MEQ/L (98-107) 110 MEQ/L (98-107) White Blood Count 13.7 TH/MM3 (4.0-11.0) 11.9 TH/MM3 (4.0-11.0) Neutrophils (%) (Auto) 91.3 % (16.0-70.0) 91.3 % (16.0-70.0) Lymphocytes (%) (Auto) 5.5 % (9.0-44.0) 4.3 % (9.0-44.0) Neutrophils # (Auto) 12.5 TH/MM3 (1.8-7.7) 10.8 TH/MM3 (1.8-7.7) Lymphocytes # (Auto) 0.8 TH/MM3 (1.0-4.8) 0.5 TH/MM3 (1.0-4.8) Total Protein 5.7 GM/DL (6.4-8.2) 5.4 GM/DL (6.4-8.2) Thyroid Stimulating Hormone 3rd Gen 0.090 uIU/ML (0.358-3.740) Imaging Last Impressions Maxillofacial CT 09/20/17 0000 Signed Impressions: Service Date/Time: Wednesday, September 20, 2017 05:42 - CONCLUSION: 1. Prominent area of soft tissue thickening adjacent to the right body of the mandible measuring up to 2.7 cm in thickness. There is a mild pattern of enhancement without discrete focal fluid collection. No extension deep to the mandible. 2. Loss of delineation of the posterior maxillary bone adjacent to the last molar suggesting possible periodontal abscess. Nirmal Linton MD PE at Discharge GENERAL: This is a well-nourished, well-developed patient, in no apparent distress. Has right-sided facial swelling and edema that is very obvious but improved from yesterday SKIN: No rashes, ecchymoses or lesions. Cool and dry. Right sided facial swelling and erythema HEAD: Atraumatic. Normocephalic. No temporal or scalp tenderness. EYES: Pupils equal round and reactive. Extraocular motions intact. No scleral icterus. No injection or drainage. ENT: Nose without bleeding, purulent drainage or septal hematoma. Throat without erythema, tonsillar hypertrophy or exudate. Uvula midline. Airway patent. Now has less right-sided facial swelling with edema probably due to cellulitis of the face and dental abscess NECK: Trachea midline. No JVD or lymphadenopathy. Supple, nontender, no meningeal signs. CARDIOVASCULAR: Regular rate and rhythm without murmurs, gallops, or rubs. S1- S2 no S3 or S4 RESPIRATORY: Clear to auscultation. Breath sounds equal bilaterally. No wheezes , rales, or rhonchi. GASTROINTESTINAL: Abdomen soft, non-tender, nondistended. No hepato-splenomegaly , or palpable masses. No guarding. MUSCULOSKELETAL: Extremities without clubbing, cyanosis, or edema. No joint tenderness, effusion, or edema noted. No calf tenderness. Negative Homans sign bilaterally. NEUROLOGICAL: Awake and alert. Cranial nerves II through XII intact. Motor and sensory grossly within normal limits. Five out of 5 muscle strength in all muscle groups. Normal speech. Insight and judgment is good Mood and behavior is appropriate Hospital Course Dental abscess Failed outpatient therapy for facial cellulitis and dental abscess has been started on Decadron as well as clindamycin IV. CT showed: Prominent area of soft tissue thickening adjacent to the right body of the mandible measuring up to 2.7 cm in thickness; There is a mild pattern of enhancement without discrete focal fluid collection; No extension deep to the mandible; Loss of delineation of the posterior maxillary bone adjacent to the last molar suggesting possible periodontal abscess. Oral surgery was consulted and recommended outpt follow-up on 09/23/17. She will continue PO clindamycin along with lactobacillus, as well as prednisone. She will take Percocet as needed. Tobacco abuse Recommend smoking cessation. Nicotine patch has been provided. Pt Condition on Discharge: Stable Discharge Disposition: Discharge Home Discharge Time: <= 30 minutes Discharge Instructions DIET: Follow Instructions for: As Tolerated, No Restrictions Activities you can perform: Regular-No Restrictions Follow up Referrals: Oral Maxillary Surgery - 09/23/17 with Rodo Perdue DMD PCP Follow-up - 1 Week New Medications: Clindamycin (Clindamycin) 300 Mg Cap 300 MG PO Q6H for Infection for 7 Days, #28 CAP 0 Refills Lactobacillus Acidophilus (Lactobacillus Acidophilus) 1 Billion Cell Tab 1 TAB PO TID for Nutritional Supplement for 7 Days, #21 TAB 0 Refills Prednisone (Prednisone) 20 Mg Tab 20 MG PO DAILY for Swelling for 3 Days, #3 TAB 0 Refills Nicotine (Eq Nicotine) 14 Mg/24 Hour Dis 1 PATCH T-DERMAL DAILY for SMOKING, #30 PATCH Oxycodone HCl/Acetaminophen (Oxycodone-Acetaminophen 5-325) 5 Mg-325 Mg Tablet 1 TAB PO Q6H PRN for PAIN SCALE 1 TO 10, #15 TAB Continued Medications: Acetaminophen-Codeine (Tylenol-Codeine #3) 300-30 mg Tab 1 TAB PO Q4H PRN for PAIN, TAB 0 Refills Discontinued Medications: Penicillin V Potassium (Penicillin V Potassium) 500 Mg Tab 500 MG PO Q6H for Infection, TAB 0 Refills Wiliam Lucas DO Sep 22, 2017 10:27
== END 2017-09-22 11:18 | disposition home or self-care (01) | DRG 603 ==
LOC: NEPE 03:36 → NEDA 07:04 → OBSVTOIN 08:44 → NEPGCP 09:14 → N05A 09-21 15:31
PROVIDERS: ADMIT Hospitalist; ATTEND Hospitalist
DX: L03.211 Cellulitis of face (principal); F17.210 Nicotine dependence, cigarettes, uncomplicated; K04.7 Periapical abscess without sinus; K02.9 Dental caries, unspecified
CPT/HCPCS: 70487; 80053; 83036; 83735; 84100; 84439; 84443; 85025; 85610; 85730; 96374; 96375; J1100; J2270; J2765; J7030; Q9967

== ENCOUNTER 2017-11-03 14:10 | Emergency (ER) | payer OTHER ==
[~2017-11-03] VITALS: Ht 162.6 cm; Wt 94.0 kg
[~2017-11-03 14:10] MED LIST changes: +CLIN300C5 PO; +LACTTAB8 PO; +NICO14DI23 T-DERMAL; +OXYC1TAB63 PO; +PRED20 PO; +TYLETAB34 PO; -ZITH250T PO
[2017-11-03 14:19] VITALS: BP 132/66; PULSE 88; RESP 17; TEMP 99.3; O2SAT 94
--- NOTE | 2017-11-03 16:49 | PD ---
HPI Chief Complaint: Pain: Acute or Chronic Time Seen by Provider: 16:41 Travel History International Travel<30 days: No Contact w/Intl Traveler<30days: No Traveled to known affect area: No History of Present Illness HPI 56-year-old female presents for evaluation right foot pain and intermittent right lower extremity swelling. Symptoms started 4 days ago. She reports pain in her right foot, primarily in the first MTP joint of the right foot, but occasionally pain in her right calf as well. She reports intermittent swelling in the right calf and foot with no aggravating or relieving factors. She was sent here by an urgent care center. She has not tried using any medication for symptom relief. She denies any trauma. Denies any history of DVT or PE. Denies any history of gout. She was admitted into the hospital for 4 days 5 weeks ago for a dental infection. She has no other complaints at this time. PFSH Past Medical History Arthritis: Yes Asthma: No Autoimmune Disease: No Cancer: No Cardiovascular Problems: No Chemotherapy: No COPD: No Diabetes: No Endocrine: No Gastrointestinal Disorders: Yes GERD: Yes Genitourinary: No Hiatal Hernia: Yes (hx of hernia repair) Immune Disorder: No Musculoskeletal: Yes Neurologic: No Psychiatric: Yes Reproductive: No Respiratory: Yes Radiation Therapy: No Sickle Cell Disease: No Sleep Apnea: Yes Thyroid Disease: No Ulcer: No ?: Not Menopausal: Yes : 3 Para: 2 Miscarriage: 1 Past Surgical History Abdominal Surgery: Yes (hernia, gallbladder) Section: Yes Cholecystectomy: Yes Ear Surgery: Yes Gynecologic Surgery: Yes (c- section) Hysterectomy: Yes Other Surgery: Yes (HERNIA REPAIR) Social History Alcohol Use: Yes (RARELY) Tobacco Use: Yes (1 PPD) Substance Use: No Allergies-Medications (Allergen,Severity, Reaction): Coded Allergies: No Known Allergies (Verified , 08/17/13) Reported Meds & Prescriptions Reported Meds & Active Scripts Active Diclofenac Sodium DR (Diclofenac Sodium) 75 Mg Tabdr 75 Mg PO BID 10 Days Review of Systems Except as stated in HPI: all other systems reviewed are Neg Physical Exam Narrative GENERAL: Well-developed well-nourished female no acute distress SKIN: Warm and dry. CARDIOVASCULAR: Regular rate and rhythm. No murmur appreciated. RESPIRATORY: No accessory muscle use. Clear to auscultation. Breath sounds equal bilaterally. GASTROINTESTINAL: Abdomen soft, non-tender, nondistended. Hepatic and splenic margins not palpable. MUSCULOSKELETAL: There is tenderness to palpation to the right foot first MTP joint. The patient is holding her right great toe and passive extension. There is pain with flexion and extension of her right great toe. There is mild tenderness to palpation the right calf. There is no lower extremity edema. 2+ dorsalis pedis and posterior tibial pulse. There is no erythema or induration of the skin. NEUROLOGICAL: Awake and alert. No obvious cranial nerve deficits. Motor grossly within normal limits. Normal speech. Data Data Last Documented VS Vital Signs Date Time Temp Pulse Resp B/P (MAP) Pulse Ox O2 Delivery O2 Flow Rate FiO2 11/03/17 18:18 78 16 130/68 (88) 97 Room Air 11/03/17 14:19 99.3 Orders Orders Us Leg Venous Doppler (11/03/17 16:46) Complete Blood Count With Diff (11/03/17 16:46) Basic Metabolic Panel (Bmp) (11/03/17 16:46) Magnesium (Mg) (11/03/17 16:46) Ketorolac Inj (Toradol Inj) (11/03/17 17:00) Foot, Complete ([id number]) (11/03/17 ) Labs Laboratory Tests Test 11/03/17 17:05 White Blood Count 7.5 TH/MM3 Red Blood Count 4.57 MIL/MM3 Hemoglobin 13.2 GM/DL Hematocrit 39.0 % Mean Corpuscular Volume 85.4 FL Mean Corpuscular Hemoglobin 28.8 PG Mean Corpuscular Hemoglobin Concent 33.7 % Red Cell Distribution Width 12.9 % Platelet Count 256 TH/MM3 Mean Platelet Volume 8.3 FL Neutrophils (%) (Auto) 59.9 % Lymphocytes (%) (Auto) 30.8 % Monocytes (%) (Auto) 8.0 % Eosinophils (%) (Auto) 0.9 % Basophils (%) (Auto) 0.4 % Neutrophils # (Auto) 4.5 TH/MM3 Lymphocytes # (Auto) 2.3 TH/MM3 Monocytes # (Auto) 0.6 TH/MM3 Eosinophils # (Auto) 0.1 TH/MM3 Basophils # (Auto) 0.0 TH/MM3 CBC Comment DIFF FINAL Differential Comment Blood Urea Nitrogen 6 MG/DL Creatinine 0.74 MG/DL Random Glucose 82 MG/DL Calcium Level 8.6 MG/DL Magnesium Level 2.2 MG/DL Sodium Level 142 MEQ/L Potassium Level 3.5 MEQ/L Chloride Level 107 MEQ/L Carbon Dioxide Level 30.2 MEQ/L Anion Gap 5 MEQ/L Estimat Glomerular Filtration Rate 81 ML/MIN [facility] Medical Decision Making Medical Screen Exam Complete: Yes Emergency Medical Condition: Yes Medical Record Reviewed: Yes Differential Diagnosis Toe sprain, pedal spasm, DVT, gouty arthritis Narrative Course Right lower extremity ultrasound, right foot x-ray, basic lab work will be obtained. The patient will be given Toradol. CBC is unremarkable. BMP is unremarkable. Lower extremity ultrasound is unremarkable. Foot x-ray reveals no acute bony findings. In retrospect the patient reports that she had a similar pain in her right first MTP joint a few months ago. Given his history certainly a mild gouty arthritis is most likely etiology although she could have a mild sprain her toes well. She will be discharged with a short course of NSAIDs. Diagnosis Primary Impression: Right foot pain Additional Instructions: Medication as needed. Take with meals. Follow-up with primary care physician in 1-2 weeks. Return for any emergent medical conditions. Med/Other Pt SpecificInfo: Prescription(s) given Scripts Diclofenac Sodium DR (Diclofenac Sodium DR) 75 Mg Tabdr 75 MG PO BID for 10 Days, #20 TAB 0 Refills Prov: Enzo Gonzalez MD 11/03/17 Disposition: 01 DISCHARGE HOME Condition: Stable Andrew Wei Nov 03, 2017 16:49
[2017-11-03] MEDS ORDERED: KETOROLAC TROMETHAMINE 30 MG/ML (IVP) VIAL IV PUSH ONE (17:00)
--- NOTE | 2017-11-03 17:13 | RADRPT ---
EXAM DATE/TIME: 11/03/2017 17:02 [facility] COMPARISON: No previous studies available for comparison. INDICATIONS : Right foot pain, denies injury MEDICAL HISTORY : None. SURGICAL HISTORY : None. ENCOUNTER: Initial ACUITY: 4 - 6 days PAIN SCORE: 6/10 LOCATION: Right Foot FINDINGS: There are arthritic changes most conspicuously present at the talonavicular joint. A moderate-sized p lantar heel spur is present. There is no evidence of fracture, dislocation or bony destruction. CONCLUSION: No acute bony findings. Robson Alvarado MD on November 03, 2017 at 17:10 Board Certified Radiologist. This report was verified electronically.
[2017-11-03 17:15] LABS: AUTOMATED NEUTROPHIL # 4.5 TH/MM3 (1.8-7.7); BASOPHIL % 0.4 % (0.0-2.0); EOSINOPHIL # 0.1 TH/MM3 (0-0.4); EOSINOPHIL % 0.9 % (0.0-4.0); HEMOGLOBIN 13.2 GM/DL (11.6-15.3); LYMPH % 30.8 % (9.0-44.0); LYMPHOCYTE # 2.3 TH/MM3 (1.0-4.8); MEAN CELL VOLUME 85.4 FL (80.0-100.0); MEAN CORPUSCULAR HEMOGLOBIN 28.8 PG (27.0-34.0); MEAN CORPUSCULAR HGB CONC 33.7 % (32.0-36.0); MEAN PLATELET VOLUME 8.3 FL (7.0-11.0); MONOCYTE # 0.6 TH/MM3 (0-0.9); NEUT % 59.9 % (16.0-70.0); PLATELET COUNT 256 TH/MM3 (150-450); RED BLOOD COUNT 4.57 MIL/MM3 (4.00-5.30); RED CELL DISTRIBUTION WIDTH 12.9 % (11.6-17.2); WHITE BLOOD COUNT 7.5 TH/MM3 (4.0-11.0)
[2017-11-03 17:33] LABS: BICARBONATE 30.2 MEQ/L (21.0-32.0); CALCIUM 8.6 MG/DL (8.5-10.1); CREATININE 0.74 MG/DL (0.50-1.00); MAGNESIUM 2.2 MG/DL (1.5-2.5)
[2017-11-03 18:18] VITALS: BP 130/68; PULSE 78; RESP 16; O2SAT 97
--- NOTE | 2017-11-03 18:35 | RADRPT ---
EXAM DATE/TIME: 11/03/2017 17:52 [facility] COMPARISON: No previous studies available for comparison. INDICATIONS : Right foot pain and swelling. MEDICAL HISTORY : Arthritis. Gastroesophageal reflux disease. Sleep apnea. SURGICAL HISTORY : section. Cholecystectomy. Hernia repair. ENCOUNTER: Initial ACUITY: 4 - 6 days PAIN SCORE: 7/10 LOCATION: Right leg. TECHNIQUE: Venous ultrasound of the leg was performed from the inguinal ligament to the proximal calf. Real-shashank e, color Doppler and spectral tracing, compression and augmentation techniques were used. FINDINGS: There is normal compressibility of the deep venous system from the inguinal region to the proximal ca lf. No echogenic clot is seen in the lumen of the common femoral, femoral, popliteal, and posterior tibial veins. There is a normal response of the venous system to proximal and distal augmentation an d respiration. CONCLUSION: Normal examination. Robson Alvarado MD on November 03, 2017 at 18:33 Board Certified Radiologist. This report was verified electronically.
[2017-11-03] MEDS ORDERED: DICL75TA PO (18:46)
== END 2017-11-03 19:06 | disposition home or self-care (01) ==
LOC: NEPD 14:10
DX: M79.671 Pain in right foot (principal); M79.661 Pain in right lower leg; M79.89 Other specified soft tissue disorders; M19.90 Unspecified osteoarthritis, unspecified site; K21.9 Gastro-esophageal reflux disease without esophagitis; G47.30 Sleep apnea, unspecified; F17.200 Nicotine dependence, unspecified, uncomplicated
CPT/HCPCS: 73630; 80048; 83735; 85025; 93971; 96374; 99285; J1885